=== PATIENT | male | born 1945 ===

== ENCOUNTER 2017-04-02 14:37 | Inpatient (IN) | payer MEDICARE, BC ==
[2017-04-02 14:37] VITALS: BMI 22.7
[2017-04-02 15:53] LABS: BILIRUBIN,TOTAL 1.7 mg/dl (0.2-1.3); CALCIUM 9.7 mg/dL (8.4-10.2); POTASSIUM 3.7 MMOL/L (3.6-5.0); TOTAL PROTEIN 7.3 G/DL (6.3-8.2)
[2017-04-02 16:01] LABS: PARTIAL THROMBOPLASTIN TIME 37.6 Seconds (25.6-37.1)
--- NOTE | 2017-04-02 16:01 | CT ---
PROCEDURE: CT HEAD WITHOUT CONTRAST. HISTORY: generalized weakness COMPARISON: Head CT without contrast 12/21/2011. TECHNIQUE: Axial computed tomography images were obtained through the head/brain without intravenous contrast. Radiation dose: Total exam DLP = 1469.10 mGy-cm. This CT exam was performed using one or more of the following dose reduction techniques: Automated exposure control, adjustment of the mA and/or kV according to patient size, and/or use of iterative reconstruction technique. FINDINGS: HEMORRHAGE: No intracranial hemorrhage. Prior intraparenchymal hemorrhage has resolved at the right basal ganglia/ thalamus and medial right temporal lobe. BRAIN: Chronic infarct is appreciated at the right thalamus, medial temporal lobe and basal ganglia. No definite acute cortical lucency is appreciate suggests an acute separate brain infarction at this time. Diffuse cerebral atrophy chronic microangiopathy is increased in the interval however there is no positive mass effect appreciated this time. Ex vacuo expansion of a right lateral ventricle is appreciated related to prior chronic infarcts. No suspicious extra-axial fluid collection identified. VENTRICLES: Unremarkable. No hydrocephalus. CALVARIUM: Unremarkable. PARANASAL SINUSES: Unremarkable as visualized. No significant inflammatory changes. MASTOID AIR CELLS: Unremarkable as visualized. No inflammatory changes. OTHER FINDINGS: Extensive vascular calcifications are appreciate in the extracranial soft tissues, particularly inferior to the skullbase. IMPRESSION: No definite acute intracranial findings. Chronic infarcted tissue is seen at the right thalamus, basal ganglia and medial right temporal lobe with ex vacuo expansion of the right lateral ventricle noted. Increased age related neuro degenerative changes are identified. Follow-up CT or MRI are available as clinically warranted.
--- NOTE | 2017-04-02 16:05 | RAD ---
HISTORY: SOB COMPARISON: Portable chest 04/01/2016. FINDINGS: LUNGS: Infiltrate or atelectasis is seen at the mid to inferior left lung zone and possibly at the medial right base, potentially increased in the interval. PLEURA: Left pleural effusion is again evident, likely unchanged in the interval. No right pleural effusion. No pneumothorax bilaterally. CARDIOVASCULAR: Cardiac silhouette is obscured. No definitive pulmonary vascular derangement identified. OSSEOUS STRUCTURES: No significant abnormalities. VISUALIZED UPPER ABDOMEN: Normal. OTHER FINDINGS: None. IMPRESSION: Interval increased left sided infiltrate or atelectasis at the mid to inferior and inferior left lung zone with stable moderate left pleural effusion.
[2017-04-02 16:22] LABS: BASO # 0.1 K/uL (0.0-0.2); BASO % 2.7 % (0.0-2.0); EOS # 0.1 K/uL (0.0-0.7); EOS % 1.5 % (0.0-4.0); HEMATOCRIT 38.1 % (35.0-51.0); LYMPH % 23.1 % (20.0-40.0); MEAN CELL VOLUME 96.9 fl (80.0-94.0); MEAN CORPUSCULAR HEMOGLOBIN 30.9 pg (27.0-31.0); MEAN CORPUSCULAR HGB CONC 31.9 g/dL (33.0-37.0); MEAN PLATELET VOLUME 9.1 fl (7.2-11.7); MONO # 0.6 K/uL (0.0-0.8); MONO % 13.9 % (0.0-10.0); NEUT # 2.5 K/uL (1.8-7.0); NEUT % 58.8 % (50.0-75.0); NRBC % 0.1 % (0.0-0.0); RED CELL DISTRIBUTION WIDTH 16.8 % (11.5-14.5); WHITE BLOOD COUNT 4.3 K/uL (4.8-10.8)
[2017-04-02 16:53] LABS: TROPONIN I 0.086 ng/mL (0.00-0.120)
[2017-04-02] MEDS ORDERED: Azithromycin 500 MG in Sodium Chloride 0.9% 250 ML IVPB ONE (18:00)
[2017-04-02] MEDS ORDERED: Albuterol-Ipratrop 3 mg / 0.5 (3 ml) UD INH PRN (18:18)
[2017-04-02] MEDS ORDERED: Albuterol 0.083% Inhal Sol (2.5 mg/3 mL) UD INH STA (18:57)
--- NOTE | 2017-04-02 18:59 | ED PDOC ---
HPI: SOB/CHF/COPD Time Seen by Provider: 04/02/17 14:57 Chief Complaint (Nursing): Weakness/Neurological Deficit Chief Complaint (Provider): SOB, generalized weakness History Per: Patient History/Exam Limitations: no limitations Onset/Duration Of Symptoms: Days Current Symptoms Are (Timing): Still Present Initiating Event: Upper Respiratory Illness (PT reports increased cough ) Exacerbating Factor(s): Laying Flat, Coughing Current Respiratory Medications: See Home Med List Similar Symptoms Previously: Pt reports generalized weakness and SOB worse today , cough no fever Past Medical History Reviewed: Historical Data, Nursing Documentation, Vital Signs Vital Signs: Last Vital Signs Temp 97 F L 04/02/17 14:45 Pulse 82 04/02/17 14:45 Resp 18 04/02/17 14:45 BP 161/83 H 04/02/17 14:45 Pulse Ox 99 04/02/17 14:45 - Medical History PMH: Back Problems, CAD, CHF, CVA, Diabetes, HTN, End Stage Renal Disease, Chronic Kidney Disease (hemodialysis m-w-f- left av shunt) - Surgical History Surgical History: No Surg Hx - Family History Family History: States: Unknown Family Hx - Living Arrangements Living Arrangements: With Family - Social History Current smoker - smoking cessation education provided: No Alcohol: None Drugs: Denies - Immunization History Hx Tetanus Toxoid Vaccination: No Hx Influenza Vaccination: Yes Hx Pneumococcal Vaccination: No - Home Medications Home Medications: Ambulatory Orders Medication Instructions Recorded Carvedilol [Coreg] 6.25 mg PO Q12H 04/02/17 Enalapril Maleate [Vasotec] 20 mg PO Q12H 04/02/17 amLODIPine [Norvasc] 5 mg PO DAILY 04/02/17 hydrALAZINE [Apresoline] 75 mg PO DAILY 04/02/17 - Allergies Allergies/Adverse Reactions: Allergies Allergy/AdvReac Type Severity Reaction Status Date / Time No Known Allergies Allergy Unverified 03/01/17 21:12 Review of Systems ROS Statement: Except As Marked, All Systems Reviewed And Found Negative Constitutional: Positive for: Weakness. Negative for: Fever, Chills Cardiovascular: Negative for: Chest Pain Respiratory: Positive for: Cough, Shortness of Breath Genitourinary Male: Negative for: Dysuria, Frequency Physical Exam - Reviewed Nursing Documentation Reviewed: Yes Vital Signs Reviewed: Yes - Physical Exam Appears: Positive for: Well, Non-toxic, No Acute Distress Head Exam: Positive for: ATRAUMATIC, NORMAL INSPECTION, NORMOCEPHALIC Skin: Positive for: Normal Color, Warm, DRY Eye Exam: Positive for: Normal appearance ENT: Positive for: Normal ENT Inspection Neck: Positive for: Normal, Painless ROM Cardiovascular/Chest: Positive for: Regular Rate, Rhythm Respiratory: Positive for: Rales (Left lower ). Negative for: Normal Breath Sounds Gastrointestinal/Abdominal: Positive for: Normal Exam, Bowel Sounds, Soft Back: Positive for: Normal Inspection Extremity: Positive for: Normal ROM Neurologic/Psych: Positive for: Alert, Oriented - Laboratory Results Result Diagrams: 04/02/17 15:35 04/02/17 15:35 - ECG O2 Sat by Pulse Oximetry: 99 Medical Decision Making Medical Decision Making: Discussed admission for pneumonia with Zack Esquivel NP Disposition - Clinical Impression Clinical Impression: Pneumonia - Patient ED Disposition Is Patient to be Admitted: Yes - Disposition Disposition Time: 18:04 - Pt Status Changed To: Hospital Disposition Of: Inpatient - Admit Certification Admit to Inpatient:: After my assessment, the patient will require hospitalization for at least two midnights. This is because of the severity of symptoms shown, intensity of services needed, and/or the medical risk in this patient being treated as an outpatient. - POA Present On Arrival: None
[2017-04-02] MEDS ORDERED: Azithromycin 500 MG IV IVPB ONE (20:06)
[2017-04-02] MEDS: Piperacillin/Tazobact 3.375 GM in Sodium Chloride 0.9% 100 ML IVPB SCH (21:51)
[2017-04-02] MEDS ORDERED: Influenza Vaccine 18yr & older 0.5 ML/45 MCG SYR IM ONE (22:00)
[2017-04-03] MEDS: Piperacillin/Tazobact 3.375 GM in Sodium Chloride 0.9% 100 ML IVPB SCH ×2 (04:07→09:43)
--- NOTE | 2017-04-03 08:45 | CP.PCM.HP ---
History of Present Illness - History of Present Illness History of Present Illness: pt admitted for pna and fluid overload. no f/c, n/v/d. minimal cough at this time. states cough x 3 months. had fluidremoved from lung in past. probnp elevated. ?? missed idalysis session. bw and imaging noted. pt refused am labs- will do w/ dialysis. med/surg hx noted. nephro on consult for [facility] dialysis schedule Present on Admission - Present on Admission Any Indicators Present on Admission: Yes History of Uncontrolled Diabetes: Yes Review of Systems - Respiratory Respiratory: As Per HPI, Cough, Dyspnea on Exertion, Chest Congestion Past Patient History - Infectious Disease Hx of Infectious Diseases: None - Past Medical History & Family History Past Medical History?: Yes - Past Social History Smoking Status: Former Smoker - CARDIAC Hx Congestive Heart Failure: Yes Hx Hypertension: Yes - PULMONARY Hx Respiratory Disorders: Yes Hx Pneumonia: Yes - NEUROLOGICAL Hx Neurological Disorder: Yes HX Cerebrovascular Accident: Yes (left sided hemiparesis 2 yrs ago) - HEENT Hx HEENT Problems: Yes - RENAL Hx Chronic Kidney Disease: Yes (hemodialysis m-w-f- left av shunt) Type of Dialysis Access: left arm AV shunt Date of Last Dialysis Treatment: 04/01/17 - ENDOCRINE/METABOLIC Hx Diabetes Mellitus Type 1: Yes Hx Diabetes Mellitus Type 2: Yes - HEMATOLOGICAL/ONCOLOGICAL Hx Blood Disorders: Yes Hx AIDS: No Hx Blood Transfusions: Yes Hx Blood Transfusion Reaction: No Hx Human Immunodeficiency Virus (HIV): No - INTEGUMENTARY Hx Dermatological Problems: No - MUSCULOSKELETAL/RHEUMATOLOGICAL Hx Musculoskeletal Disorders: No Hx Falls: Yes - GASTROINTESTINAL Hx Gastrointestinal Disorders: No - GENITOURINARY/GYNECOLOGICAL Hx Genitourinary Disorders: No Other/Comment: ANURIC - PSYCHIATRIC Hx Psychophysiologic Disorder: No Hx Substance Use: No - SURGICAL HISTORY Hx Surgeries: Yes Hx Amputation: Yes (right big toe) Other/Comment: Left AV shunt - ANESTHESIA Hx Anesthesia: Yes Hx Anesthesia Reactions: No Hx Malignant Hyperthermia: No Meds Allergies/Adverse Reactions: Allergies Allergy/AdvReac Type Severity Reaction Status Date / Time No Known Allergies Allergy Unverified 03/01/17 21:12 Physical Exam - Constitutional Appears: Well, Non-toxic, No Acute Distress - Head Exam Head Exam: ATRAUMATIC, NORMAL INSPECTION, NORMOCEPHALIC - Eye Exam Eye Exam: EOMI, Normal appearance, PERRL Pupil Exam: NORMAL ACCOMODATION, PERRL - ENT Exam ENT Exam: Mucous Membranes Moist, Normal Exam - Neck Exam Neck exam: Positive for: Normal Inspection - Respiratory Exam Respiratory Exam: Decreased Breath Sounds, Clear to Auscultation Bilateral, NORMAL BREATHING PATTERN Additional comments: poor insp effort, diminished bases - Cardiovascular Exam Cardiovascular Exam: REGULAR RHYTHM, RRR, +S1, +S2 - GI/Abdominal Exam GI & Abdominal Exam: Normal Bowel Sounds, Soft. absent: Tenderness - Extremities Exam Extremities exam: Positive for: full ROM, normal capillary refill, normal inspection, pedal pulses present - Back Exam Back exam: NORMAL INSPECTION - Neurological Exam Neurological exam: Alert, CN II-XII Intact, Normal Gait, Oriented x3, Reflexes Normal - Psychiatric Exam Psychiatric exam: Normal Affect, Normal Mood - Skin Skin Exam: Dry, Intact, Normal Color, Warm Results - Vital Signs Recent Vital Signs: Last Vital Signs Temp 97.2 F L 04/03/17 08:00 Pulse 69 04/03/17 08:00 Resp 18 04/03/17 08:00 BP 157/94 H 04/03/17 08:00 Pulse Ox 95 04/03/17 08:00 - Labs Result Diagrams: 04/02/17 15:35 04/02/17 15:35 Labs: Laboratory Results - last 24 hr 04/02/17 04/02/17 04/02/17 15:35 15:35 15:35 WBC 4.3 L RBC 3.94 L Hgb 12.2 D Hct 38.1 MCV 96.9 H MCH 30.9 MCHC 31.9 L RDW 16.8 H Plt Count 111 L D MPV 9.1 Neut % (Auto) 58.8 Lymph % (Auto) 23.1 [place] % (Auto) 13.9 H Eos % (Auto) 1.5 Baso % (Auto) 2.7 H Neut # 2.5 Lymph # 1.0 [place] # 0.6 Eos # 0.1 Baso # 0.1 PT INR APTT Sodium 136 Potassium 3.7 Chloride 98 Carbon Dioxide 26 Anion Gap 15 BUN 23 H Creatinine 2.7 H Est GFR ( Amer) 28 Est GFR (Non-Af Amer) 23 POC Glucose (mg/dL) Random Glucose 106 Lactic Acid 1.2 Calcium 9.7 Total Bilirubin 1.7 H AST 37 ALT 28 Alkaline Phosphatase 336 H Troponin I 0.0860 NT-Pro-B Natriuret Pep 418742 H Total Protein 7.3 Albumin 3.6 Globulin 3.7 Albumin/Globulin Ratio 1.0 04/02/17 04/02/17 04/03/17 15:35 21:49 05:26 WBC RBC Hgb Hct MCV MCH MCHC RDW Plt Count MPV Neut % (Auto) Lymph % (Auto) [place] % (Auto) Eos % (Auto) Baso % (Auto) Neut # Lymph # [place] # Eos # Baso # PT 13.4 H INR 1.2 APTT 37.6 H Sodium Potassium Chloride Carbon Dioxide Anion Gap BUN Creatinine Est GFR ( Amer) Est GFR (Non-Af Amer) POC Glucose (mg/dL) 290 H 65 Random Glucose Lactic Acid Calcium Total Bilirubin AST ALT Alkaline Phosphatase Troponin I NT-Pro-B Natriuret Pep Total Protein Albumin Globulin Albumin/Globulin Ratio 04/03/17 06:16 WBC RBC Hgb Hct MCV MCH MCHC RDW Plt Count MPV Neut % (Auto) Lymph % (Auto) [place] % (Auto) Eos % (Auto) Baso % (Auto) Neut # Lymph # [place] # Eos # Baso # PT INR APTT Sodium Potassium Chloride Carbon Dioxide Anion Gap BUN Creatinine Est GFR ( Amer) Est GFR (Non-Af Amer) POC Glucose (mg/dL) 144 H Random Glucose Lactic Acid Calcium Total Bilirubin AST ALT Alkaline Phosphatase Troponin I NT-Pro-B Natriuret Pep Total Protein Albumin Globulin Albumin/Globulin Ratio Assessment & Plan (1) DVT prophylaxis Assessment and Plan: scd and ae hose, lovenox Status: Acute (2) Pneumonia Assessment and Plan: zosyn, zithromax, mucinex, duoneb monitor bw Status: Acute (3) CHF (congestive heart failure) Assessment and Plan: cardio, dialysis Status: Acute (4) IDDM (insulin dependent diabetes mellitus) Assessment and Plan: riss home meds, diet Status: Chronic Priority: Medium - Assessment and Plan (Free Text) Assessment: [id number], dialysis Decision To Admit - Pt Status Changed To: Hospital Disposition Of: Inpatient - Admit Certification Admit to Inpatient:: After my assessment, the patient will require hospitalization for at least two midnights. This is because of the severity of symptoms shown, intensity of services needed, and/or the medical risk in this patient being treated as an outpatient. - . Bed Request Type: Telemetry Admitting Physician: Jefe Little
[2017-04-03] MEDS: guaiFENesin-DM 600-30 mg ER Tab PO SCH ×2 (09:43→17:43)
[2017-04-03] MEDS ORDERED: Enoxaparin 30 mg Syringe SC SCH (10:00)
--- NOTE | 2017-04-03 11:17 | CP.PCM.CON ---
History of Present Illness - History of Present Illness History of Present Illness: Patient is a 71 years of age Admitted because of coughing weakness and diagnosis pneumonia infiltration of the lung and pleural effusion Patient is known with history of diabetes mellitus hypertension hyperlipidemia and previous pneumonia and admission for congestive heart failure and pneumonia as well Patient with history of end-stage renal disease on maintenance hemodialysis Thursday Is being dialyze at [facility] Review of Systems - Review of Systems Systems not reviewed;Unavailable: Altered Mental Status - Constitutional Constitutional: Anorexia, Fatigue, Lethargy, Weakness - EENT Eyes: As Per HPI Nose/Mouth/Throat: As Per HPI - Cardiovascular Cardiovascular: Dyspnea. absent: Chest Pain, Edema, Leg Edema - Respiratory Respiratory: Cough, Dyspnea - Gastrointestinal Gastrointestinal: absent: Abdominal Pain, Coffee Ground Emesis, Diarrhea, Vomiting - Genitourinary Genitourinary: Nocturia - Musculoskeletal Musculoskeletal: Muscle Weakness - Integumentary Integumentary: As Per HPI - Neurological Neurological: Abnormal Gait - Psychiatric Psychiatric: Change in Appetite, Confusion - Endocrine Endocrine: As Per HPI, Fatigue - Hematologic/Lymphatic Hematologic: absent: Easy Bleeding, Easy Bruising Past Patient History - Infectious Disease Hx of Infectious Diseases: None - Past Medical History & Family History Past Medical History?: Yes - Past Social History Smoking Status: Former Smoker - CARDIAC Hx Congestive Heart Failure: Yes Hx Hypertension: Yes - PULMONARY Hx Respiratory Disorders: Yes Hx Pneumonia: Yes - NEUROLOGICAL Hx Neurological Disorder: Yes HX Cerebrovascular Accident: Yes (left sided hemiparesis 2 yrs ago) - HEENT Hx HEENT Problems: Yes - RENAL Hx Chronic Kidney Disease: Yes (hemodialysis m-w-f- left av shunt) Type of Dialysis Access: left arm AV shunt Date of Last Dialysis Treatment: 04/01/17 - ENDOCRINE/METABOLIC Hx Diabetes Mellitus Type 1: Yes Hx Diabetes Mellitus Type 2: Yes - HEMATOLOGICAL/ONCOLOGICAL Hx Blood Disorders: Yes Hx AIDS: No Hx Blood Transfusions: Yes Hx Blood Transfusion Reaction: No Hx Human Immunodeficiency Virus (HIV): No - INTEGUMENTARY Hx Dermatological Problems: No - MUSCULOSKELETAL/RHEUMATOLOGICAL Hx Musculoskeletal Disorders: No Hx Falls: Yes - GASTROINTESTINAL Hx Gastrointestinal Disorders: No - GENITOURINARY/GYNECOLOGICAL Hx Genitourinary Disorders: No Other/Comment: ANURIC - PSYCHIATRIC Hx Psychophysiologic Disorder: No Hx Substance Use: No - SURGICAL HISTORY Hx Surgeries: Yes Hx Amputation: Yes (right big toe) Other/Comment: Left AV shunt - ANESTHESIA Hx Anesthesia: Yes Hx Anesthesia Reactions: No Hx Malignant Hyperthermia: No Meds Allergies/Adverse Reactions: Allergies Allergy/AdvReac Type Severity Reaction Status Date / Time No Known Allergies Allergy Unverified 03/01/17 21:12 - Medications Medications: Current Medications Albuterol/Ipratropium (Duoneb 3 Mg/0.5 Mg (3 Ml) Ud) 3 ml INH RQ4 PRN PRN Reason: Shortness of Breath Amlodipine Besylate (Norvasc) 5 mg PO DAILY [facility] Last Admin: 04/03/17 09:43 Dose: 5 mg Carvedilol (Coreg) 6.25 mg PO Q12H [facility] Last Admin: 04/03/17 05:57 Dose: 6.25 mg Enalapril Maleate (Vasotec) 20 mg PO Q12H [facility] Last Admin: 04/03/17 05:58 Dose: 20 mg Enoxaparin Sodium (Lovenox) 30 mg SC DAILY [facility] PRN Reason: Protocol Guaifenesin/Dextromethorphan (Mucinex-Dm 600-30 Mg) 1 tab PO BID [facility] Last Admin: 04/03/17 09:43 Dose: 1 tab Hydralazine HCl (Apresoline) 75 mg PO DAILY [facility] Last Admin: 04/03/17 09:42 Dose: 75 mg Azithromycin 500 mg/ Sodium (Chloride) 250 mls @ 250 mls/hr IVPB DAILY [facility] PRN Reason: Protocol Piperacillin Sod/Tazobactam (Sod 2.25 gm/ Sodium Chloride) 100 mls @ 100 mls/ hr IVPB Q8 [facility] PRN Reason: Protocol Physical Exam - Constitutional Appears: No Acute Distress - Eye Exam Eye Exam: Conjunctival injection - ENT Exam ENT Exam: Mucous Membranes Moist - Respiratory Exam Respiratory Exam: Decreased Breath Sounds, Rhonchi, NORMAL BREATHING PATTERN. absent: Chest Wall Tenderness - Cardiovascular Exam Cardiovascular Exam: absent: JVD, Rubs - GI/Abdominal Exam GI & Abdominal Exam: Soft. absent: Normal Bowel Sounds - Extremities Exam Extremities exam: Negative for: calf tenderness - Back Exam Back exam: absent: CVA tenderness (L), CVA tenderness (R) - Neurological Exam Neurological exam: Altered - Psychiatric Exam Psychiatric exam: Flat Affect - Skin Skin Exam: Dry Results - Vital Signs Recent Vital Signs: Last Vital Signs Temp 97.2 F L 10/13/17 08:00 Pulse 69 04/03/17 08:00 Resp 18 04/03/17 08:00 BP 157/97 H 04/03/17 09:42 Pulse Ox 95 04/03/17 08:00 - Labs Result Diagrams: 04/02/17 15:35 04/02/17 15:35 Labs: Laboratory Results - last 24 hr 04/02/17 04/02/17 04/02/17 15:35 15:35 15:35 WBC 4.3 L RBC 3.94 L Hgb 12.2 D Hct 38.1 MCV 96.9 H MCH 30.9 MCHC 31.9 L RDW 16.8 H Plt Count 111 L D MPV 9.1 Neut % (Auto) 58.8 Lymph % (Auto) 23.1 [place] % (Auto) 13.9 H Eos % (Auto) 1.5 Baso % (Auto) 2.7 H Neut # 2.5 Lymph # 1.0 [place] # 0.6 Eos # 0.1 Baso # 0.1 PT INR APTT Sodium 136 Potassium 3.7 Chloride 98 Carbon Dioxide 26 Anion Gap 15 BUN 23 H Creatinine 2.7 H Est GFR ( Amer) 28 Est GFR (Non-Af Amer) 23 POC Glucose (mg/dL) Random Glucose 106 Lactic Acid 1.2 Calcium 9.7 Total Bilirubin 1.7 H AST 37 ALT 28 Alkaline Phosphatase 336 H Troponin I 0.0860 NT-Pro-B Natriuret Pep 346222 H Total Protein 7.3 Albumin 3.6 Globulin 3.7 Albumin/Globulin Ratio 1.0 04/02/17 04/02/17 04/03/17 15:35 21:49 05:26 WBC RBC Hgb Hct MCV MCH MCHC RDW Plt Count MPV Neut % (Auto) Lymph % (Auto) [place] % (Auto) Eos % (Auto) Baso % (Auto) Neut # Lymph # [place] # Eos # Baso # PT 13.4 H INR 1.2 APTT 37.6 H Sodium Potassium Chloride Carbon Dioxide Anion Gap BUN Creatinine Est GFR ( Amer) Est GFR (Non-Af Amer) POC Glucose (mg/dL) 290 H 65 Random Glucose Lactic Acid Calcium Total Bilirubin AST ALT Alkaline Phosphatase Troponin I NT-Pro-B Natriuret Pep Total Protein Albumin Globulin Albumin/Globulin Ratio 04/03/17 06:16 WBC RBC Hgb Hct MCV MCH MCHC RDW Plt Count MPV Neut % (Auto) Lymph % (Auto) [place] % (Auto) Eos % (Auto) Baso % (Auto) Neut # Lymph # [place] # Eos # Baso # PT INR APTT Sodium Potassium Chloride Carbon Dioxide Anion Gap BUN Creatinine Est GFR ( Amer) Est GFR (Non-Af Amer) POC Glucose (mg/dL) 144 H Random Glucose Lactic Acid Calcium Total Bilirubin AST ALT Alkaline Phosphatase Troponin I NT-Pro-B Natriuret Pep Total Protein Albumin Globulin Albumin/Globulin Ratio Assessment & Plan (1) Chronic kidney disease, stage V requiring chronic dialysis Assessment and Plan: Patient with end stage renal disease on maintenance hemodialysis MWF Admitted with pneumonia also chest x-ray noted to have pleural effusion and pneumonia Patient appeared to have muscle wasting Cachexia Volume overloaded was hypo-BMP Lab reviewed Patient has been on hemodialysis for about 10 years AV fistula in the left upper arm with 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
[2017-04-03] MEDS: Azithromycin 500 MG in Sodium Chloride 0.9% 250 ML IVPB SCH (13:35)
--- NOTE | 2017-04-03 16:08 | CON ---
CARDIOLOGY CONSULTATION DATE: REASON FOR CONSULTATION: Shortness of breath as well as congestive heart failure. HISTORY OF PRESENT ILLNESS: The patient is a 71-year-old male, who has a history of end-stage renal disease, on hemodialysis for the past 10 years; history of stroke with hemiplegia 5 years ago, is being bedridden. The patient was referred for admission because of shortness of breath and diagnosis of pneumonia on a recent outpatient chest x-ray. The patient has a history of congestive heart failure. His echocardiographic study performed in March last revealed ejection fraction estimated at 25% and, at that time, the patient had large distal pleural effusion. According to the , the patient required thoracocentesis in the past for his pericardial effusion. No reported fever or chills by the way. No reported retrosternal chest pain. PAST MEDICAL HISTORY: Hypertension, end-stage renal disease, CVA, congestive heart failure, left pleural effusion. SOCIAL HISTORY: The patient is a nonsmoker. He is bedridden, lives with his . 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 The patient has been admitted a few times this year. MEDICATIONS: Hydralazine 75 mg daily, Zithromax 500 mg intravenously daily, Coreg 6.25 mg p.o. twice a day, albuterol inhaler q4. hours p.r.n., Lovenox 30 mg once a day, Norvasc 5 mg once a day, Zosyn 2.25 g intravenous q.8 hours, Vasotec 20 mg twice a day. PHYSICAL EXAMINATION: GENERAL: The patient is an elderly male who does not appear to be in acute distress. VITAL SIGNS: Blood pressure 161/83, heart rate 82, temperature 97, respirations 18. HEENT: No pallor or icterus. NECK: No JVD. CHEST: Absent breath sounds over both bases. HEART: S1 and S2 regular. ABDOMEN: Soft. EXTREMITIES: Trace leg edema. LABORATORY DATA: Hemoglobin and hematocrit 12.2 and 38.1, white count 4.3, platelet count 111,000. SMA-7 is within normal limits except for BUN and creatinine of 23 and 2.7. Total bilirubin is slightly elevated at 1.7, proBNP is 418,000. Alkaline phosphatase is elevated at 336. PTT 37.6, INR is 1.2. EKG revealed sinus rhythm with left axis deviation, right bundle branch block. Chest x-ray revealed cardiomegaly with a left lower lobe effusion. ASSESSMENT: 1. Acute systolic heart failure. 2. End-stage renal disease, on hemodialysis. 3. History of cerebrovascular accident with residual hemiplegia. RECOMMENDATIONS: Continue hydralazine 75 mg once daily, IV Zithromax at 500 mg daily, and IV Zosyn at 2.25 g intravenous q.8 hours. Continue amlodipine at 5 mg once daily, Vasotec 20 mg twice a day, and Coreg 6.25 mg twice a day. Obtain a repeat echocardiographic study and consider a chest CT scan without contrast. Start subcutaneous heparin at 5000 units q.12 hours. Dc La MD
[2017-04-03 21:22] LABS: ALB/GLOB RATIO 0.9 (1.0-2.1); BILIRUBIN,TOTAL 1.4 mg/dl (0.2-1.3); CALCIUM 8.8 mg/dL (8.4-10.2); POTASSIUM 4.1 MMOL/L (3.6-5.0); TOTAL PROTEIN 5.8 G/DL (6.3-8.2)
[2017-04-03 23:04] LABS: HEMATOCRIT 33.5 % (35.0-51.0); MEAN CELL VOLUME 94.8 fl (80.0-94.0); MEAN CORPUSCULAR HEMOGLOBIN 30.6 pg (27.0-31.0); MEAN CORPUSCULAR HGB CONC 32.3 g/dL (33.0-37.0); RED CELL DISTRIBUTION WIDTH 17.2 % (11.5-14.5); WHITE BLOOD COUNT 3.6 K/uL (4.8-10.8)
--- NOTE | 2017-04-04 06:41 | CARD ---
APPROVED REPORT EKG Measurement Heart [id number] <Conclusion> Normal sinus rhythm with sinus arrhythmia Left axis deviation Right bundle branch block Abnormal ECG
--- NOTE | 2017-04-04 07:34 | CP.PCM.PN ---
Subjective - Date & Time of Evaluation Date of Evaluation: 04/04/17 Time of Evaluation: 07:34 - Subjective Subjective: no complaints. no cp, cough, congestion. nof /c, n/v/d. pt refused am labs. labs during dialysis noted. all consults appriciated. repss even and unlabored Objective - Vital Signs/Intake and Output Vital Signs (last 24 hours): Temp Pulse Resp BP Pulse Ox 97.4 F L 69 20 143/79 97 04/04/17 05:00 04/04/17 05:38 04/04/17 05:00 04/04/17 05:38 04/04/17 05:00 - Medications Medications: Current Medications Acetaminophen (Tylenol 325mg Tab) 650 mg PO Q4 PRN PRN Reason: Pain, moderate (4-7) Last Admin: 04/03/17 15:27 Dose: 650 mg Albuterol/Ipratropium (Duoneb 3 Mg/0.5 Mg (3 Ml) Ud) 3 ml INH RQ4 PRN PRN Reason: Shortness of Breath Amlodipine Besylate (Norvasc) 5 mg PO DAILY [facility] Last Admin: 04/03/17 09:43 Dose: 5 mg Carvedilol (Coreg) 6.25 mg PO Q12H [facility] Last Admin: 04/04/17 05:38 Dose: 6.25 mg Enalapril Maleate (Vasotec) 20 mg PO Q12H [facility] Last Admin: 04/04/17 05:38 Dose: 20 mg Guaifenesin/Dextromethorphan (Mucinex-Dm 600-30 Mg) 1 tab PO BID [facility] Last Admin: 04/03/17 17:43 Dose: 1 tab Heparin Sodium (Porcine) (Heparin) 5,000 units SC Q12 MICHAEL PRN Reason: Protocol Last Admin: 04/04/17 00:39 Dose: 5,000 units Hydralazine HCl (Apresoline) 75 mg PO DAILY [facility] Last Admin: 04/03/17 09:42 Dose: 75 mg Azithromycin 500 mg/ Sodium (Chloride) 250 mls @ 250 mls/hr IVPB DAILY MICHAEL PRN Reason: Protocol Last Admin: 04/03/17 13:35 Dose: 250 mls/hr Piperacillin Sod/Tazobactam (Sod 2.25 gm/ Sodium Chloride) 100 mls @ 100 mls/ hr IVPB Q8 MICHAEL PRN Reason: Protocol Last Admin: 04/04/17 00:39 Dose: 100 mls/hr - Labs Labs: 04/03/17 20:30 04/03/17 21:03 PT 13.4 Seconds (9.8-13.1) H 04/02/17 15:35 INR 1.2 (0.9-1.2) 04/02/17 15:35 APTT 37.6 Seconds (25.6-37.1) H 04/02/17 15:35 - Constitutional Appears: Well, Non-toxic, No Acute Distress - Head Exam Head Exam: ATRAUMATIC, NORMAL INSPECTION, NORMOCEPHALIC - Eye Exam Eye Exam: EOMI, Normal appearance, PERRL Pupil Exam: NORMAL ACCOMODATION, PERRL - ENT Exam ENT Exam: Mucous Membranes Moist, Normal Exam - Neck Exam Neck Exam: Full ROM, Normal Inspection. absent: Lymphadenopathy - Respiratory Exam Respiratory Exam: Clear to Ausculation Bilateral, NORMAL BREATHING PATTERN - Cardiovascular Exam Cardiovascular Exam: REGULAR RHYTHM, RRR, +S1, +S2. absent: Murmur - GI/Abdominal Exam GI & Abdominal Exam: Soft, Normal Bowel Sounds. absent: Tenderness - Extremities Exam Extremities Exam: Full ROM, Normal Capillary Refill, Normal Inspection. absent : Joint Swelling, Pedal Edema - Back Exam Back Exam: NORMAL INSPECTION - Neurological Exam Neurological Exam: Alert, Awake, CN II-XII Intact, Normal Gait, Oriented x3 - Psychiatric Exam Psychiatric exam: Normal Affect, Normal Mood - Skin Skin Exam: Dry, Intact, Normal Color, Warm Assessment and Plan (1) DVT prophylaxis Status: Acute (2) Pneumonia Status: Acute (3) CHF (congestive heart failure) Status: Acute (4) IDDM (insulin dependent diabetes mellitus) Status: Chronic - Assessment and Plan (Free Text) Assessment: (1) DVT prophylaxis Assessment and Plan: scd and ae hose, heparin Status: Acute (2) Pneumonia Assessment and Plan: zosyn, zithromax, mucinex, duoneb monitor bw Status: Acute (3) CHF (congestive heart failure) Assessment and Plan: cardio, dialysis echo Status: Acute (4) IDDM (insulin dependent diabetes mellitus) Assessment and Plan: riss home meds, diet Status: Chronic Priority: Medium - Assessment and Plan (Free Text) Assessment: [id number], dialysis
[2017-04-04] MEDS: guaiFENesin-DM 600-30 mg ER Tab PO SCH ×2 (09:37→17:55)
[2017-04-04] MEDS: Azithromycin 500 MG in Sodium Chloride 0.9% 250 ML IVPB SCH (09:40)
--- NOTE | 2017-04-05 02:39 | PN ---
SUBJECTIVE: The patient denies any chest pain or shortness of breath. He does report abdominal discomfort, but no nausea or vomiting and he states that he did not like his food because it was disgusting, according to him. His today. PHYSICAL EXAMINATION: VITAL SIGNS: Blood pressure 123/71, heart rate 66, temperature 97.5, respirations 20. HEENT: Pale conjunctivae. CHEST: Absent breath sounds over the left base. HEART: S1, S2 regular. EXTREMITIES: Trace leg edema. ASSESSMENT: 1. Cardiomyopathy. 2. End-stage renal disease, on hemodialysis. 3. Pneumonia and left pleural effusion. 4. History of cerebrovascular accident. RECOMMENDATIONS: Continue Zithromax 500 mg intravenous daily, Coreg 6.25 mg twice a day, heparin 5000 units subcutaneous twice a day, Norvasc 5 mg once a day, Zosyn 2.25 g intravenous q.8 hours, Lasix 20 mg orally twice a day. Obtain a followup portable chest x-ray. Dc La MD
--- NOTE | 2017-04-05 02:53 | CP.PCM.PN ---
Subjective - Date & Time of Evaluation Date of Evaluation: 04/04/17 Time of Evaluation: 13:00 - Subjective Subjective: renal follow up note no events overnight PE: lying in bed asleep [place] NAD s1s2 present bilateral air entry equal abd soft no edema contractures from hemiplegia uncooperative Objective - Vital Signs/Intake and Output Vital Signs (last 24 hours): Temp Pulse Resp BP Pulse Ox 97 F L 69 20 166/92 H 98 04/04/17 19:50 04/04/17 19:50 04/04/17 19:50 04/04/17 19:50 04/04/17 19:50 - Medications Medications: Current Medications Acetaminophen (Tylenol 325mg Tab) 650 mg PO Q4 PRN PRN Reason: Pain, moderate (4-7) Last Admin: 04/03/17 15:27 Dose: 650 mg Albuterol/Ipratropium (Duoneb 3 Mg/0.5 Mg (3 Ml) Ud) 3 ml INH RQ4 PRN PRN Reason: Shortness of Breath Amlodipine Besylate (Norvasc) 5 mg PO DAILY [facility] Last Admin: 04/04/17 09:57 Dose: Not Given Carvedilol (Coreg) 6.25 mg PO Q12H [facility] Last Admin: 04/04/17 17:56 Dose: 6.25 mg Enalapril Maleate (Vasotec) 20 mg PO Q12H [facility]PL[facility] Last Admin: 04/04/17 22:36 Dose: 20 mg Guaifenesin/Dextromethorphan (Mucinex-Dm 600-30 Mg) 1 tab PO BID [facility] Last Admin: 04/04/17 17:55 Dose: 1 tab Heparin Sodium (Porcine) (Heparin) 5,000 units SC Q12 MICHAEL PRN Reason: Protocol Last Admin: 04/04/17 22:39 Dose: Not Given Hydralazine HCl (Apresoline) 75 mg PO DAILY [facility] Last Admin: 04/04/17 09:37 Dose: Not Given Azithromycin 500 mg/ Sodium (Chloride) 250 mls @ 250 mls/hr IVPB DAILY MICHAEL PRN Reason: Protocol Last Admin: 04/04/17 09:40 Dose: 250 mls/hr Piperacillin Sod/Tazobactam (Sod 2.25 gm/ Sodium Chloride) 100 mls @ 100 mls/ hr IVPB Q8 MICHAEL PRN Reason: Protocol Last Admin: 04/05/17 00:40 Dose: 100 mls/hr - Labs Labs: 04/03/17 20:30 04/03/17 21:03 PT 13.4 Seconds (9.8-13.1) H 04/02/17 15:35 INR 1.2 (0.9-1.2) 04/02/17 15:35 APTT 37.6 Seconds (25.6-37.1) H 04/02/17 15:35 Assessment and Plan - Assessment and Plan (Free Text) Plan: ESRD/CVA/HTN/pnemonia/anemia hd mwf, continue per schedule lytes reviewed volume status stable anemia stable monitor phos levels abx per primary team
--- NOTE | 2017-04-05 09:12 | CP.PCM.PN ---
Subjective - Date & Time of Evaluation Date of Evaluation: 04/05/17 Time of Evaluation: 09:11 - Subjective Subjective: no complaints/distress. no cough/congestion. no f/c, n/v/d. refusing am labs. consult notes appriciated. pending echo reoprte. Objective - Vital Signs/Intake and Output Vital Signs (last 24 hours): Temp Pulse Resp BP Pulse Ox 97.4 F L 70 18 125/97 H 96 04/05/17 08:00 04/05/17 08:00 04/05/17 08:00 04/05/17 08:00 04/05/17 08:00 - Medications Medications: Current Medications Acetaminophen (Tylenol 325mg Tab) 650 mg PO Q4 PRN PRN Reason: Pain, moderate (4-7) Last Admin: 04/03/17 15:27 Dose: 650 mg Albuterol/Ipratropium (Duoneb 3 Mg/0.5 Mg (3 Ml) Ud) 3 ml INH RQ4 PRN PRN Reason: Shortness of Breath Amlodipine Besylate (Norvasc) 5 mg PO DAILY [facility] Last Admin: 04/04/17 09:57 Dose: Not Given Carvedilol (Coreg) 6.25 mg PO Q12H [facility] Last Admin: 04/05/17 06:49 Dose: 6.25 mg Enalapril Maleate (Vasotec) 20 mg PO Q12H [facility] Last Admin: 04/05/17 06:49 Dose: 20 mg Guaifenesin/Dextromethorphan (Mucinex-Dm 600-30 Mg) 1 tab PO BID [facility] Last Admin: 04/04/17 17:55 Dose: 1 tab Heparin Sodium (Porcine) (Heparin) 5,000 units SC Q12 MICHAEL PRN Reason: Protocol Last Admin: 04/04/17 22:39 Dose: Not Given Hydralazine HCl (Apresoline) 75 mg PO DAILY [facility] Last Admin: 04/04/17 09:37 Dose: Not Given Azithromycin 500 mg/ Sodium (Chloride) 250 mls @ 250 mls/hr IVPB DAILY MICHAEL PRN Reason: Protocol Last Admin: 04/04/17 09:40 Dose: 250 mls/hr Piperacillin Sod/Tazobactam (Sod 2.25 gm/ Sodium Chloride) 100 mls @ 100 mls/ hr IVPB Q8 MICHAEL PRN Reason: Protocol Last Admin: 04/05/17 00:40 Dose: 100 mls/hr - Labs Labs: 04/03/17 20:30 04/03/17 21:03 PT 13.4 Seconds (9.8-13.1) H 04/02/17 15:35 INR 1.2 (0.9-1.2) 04/02/17 15:35 APTT 37.6 Seconds (25.6-37.1) H 04/02/17 15:35 - Constitutional Appears: Well, Non-toxic, No Acute Distress, Chronically Ill - Head Exam Head Exam: ATRAUMATIC, NORMAL INSPECTION, NORMOCEPHALIC - Eye Exam Eye Exam: EOMI, Normal appearance, PERRL Pupil Exam: NORMAL ACCOMODATION, PERRL - ENT Exam ENT Exam: Mucous Membranes Moist, Normal Exam - Neck Exam Neck Exam: Full ROM, Normal Inspection. absent: Lymphadenopathy - Respiratory Exam Respiratory Exam: Clear to Ausculation Bilateral, NORMAL BREATHING PATTERN - Cardiovascular Exam Cardiovascular Exam: REGULAR RHYTHM, RRR, +S1, +S2. absent: Murmur - GI/Abdominal Exam GI & Abdominal Exam: Soft, Normal Bowel Sounds. absent: Tenderness - Extremities Exam Extremities Exam: Full ROM, Normal Capillary Refill, Normal Inspection. absent : Joint Swelling, Pedal Edema - Back Exam Back Exam: NORMAL INSPECTION - Neurological Exam Neurological Exam: Abnormal Gait, Alert, Awake, CN II-XII Intact, Oriented x3 - Psychiatric Exam Psychiatric exam: Normal Affect, Normal Mood - Skin Skin Exam: Dry, Intact, Normal Color, Warm Assessment and Plan (1) DVT prophylaxis Status: Acute (2) Pneumonia Status: Acute (3) CHF (congestive heart failure) Status: Acute (4) IDDM (insulin dependent diabetes mellitus) Status: Chronic - Assessment and Plan (Free Text) Assessment: (1) DVT prophylaxis Assessment and Plan: scd and ae hose, heparin Status: Acute (2) Pneumonia Assessment and Plan: zosyn, zithromax, mucinex, duoneb monitor bw repeat xr Status: Acute (3) CHF (congestive heart failure) Assessment and Plan: cardio, dialysis echo[ending report Status: Acute (4) IDDM (insulin dependent diabetes mellitus) Assessment and Plan: riss home meds, diet Status: Chronic Priority: Medium - Assessment and Plan (Free Text) Assessment: [id number], dialysis
--- NOTE | 2017-04-05 09:58 | RAD ---
PROCEDURE: CHEST RADIOGRAPH, 1 VIEW HISTORY: effusion COMPARISON: 04/02/2017 FINDINGS: LUNGS: Persistent areas of alveolar density are identified bilaterally as well as probable subsegmental atelectasis at the left lung base secondary to left pleural effusion. There may be some mild increase in congestion and alveolar density in the right lung. PLEURA: Left pleural effusion. Minor right effusion. CARDIOVASCULAR: Probable mild increase in vascular congestion. OSSEOUS STRUCTURES: No significant abnormalities. VISUALIZED UPPER ABDOMEN: Normal. OTHER FINDINGS: None. IMPRESSION: Probable mild increase in vascular congestion with persistent alveolar edema and left pleural effusion with subsegmental atelectasis at the left lung base.
[2017-04-05] MEDS: Azithromycin 500 MG in Sodium Chloride 0.9% 250 ML IVPB SCH ×2 (10:31→10:34)
[2017-04-05] MEDS: guaiFENesin-DM 600-30 mg ER Tab PO SCH ×2 (10:33→16:32)
--- NOTE | 2017-04-05 17:03 | PN ---
DATE: SUBJECTIVE: The patient denies any chest pain or shortness of breath. PHYSICAL EXAMINATION VITAL SIGNS: Blood pressure 121/72, heart rate 65, temperature 97.4, respirations 20. HEENT: Pale conjunctiva. CHEST: Absent breath sounds over the left base. HEART: S1, S2 regular. ABDOMEN: Soft. EXTREMITIES: Left hemiplegia and right big toe amputation. LABORATORY DATA: Brief review of the echocardiographic study revealed severely depressed ejection fraction. ASSESSMENT: 1. Dilated cardiomyopathy. 2. History of cerebrovascular accident with residual left hemiplegia. 3. End-stage renal disease, on hemodialysis. 4. Peripheral vascular disease, status post right big toe amputation. 5. Left lower lobe pneumonia and possibly pleural effusion. RECOMMENDATIONS: I could not access the chest x-ray image that was done yesterday; however, the official report suggests probably mild increase in vascular congestion with persistent edema and left pleural effusion with subsegmental atelectasis at the left lung base. Continue current hydralazine 75 mg once a day. Continue IV Zithromax and IV Zosyn. Continue enalapril 20 mg twice a day, Norvasc at 5 mg once a day, subcutaneous heparin 5000 units q. 8 hours; Coreg 6.25 mg twice a day. I will administer one dose of Lasix 80 mg IV push now. Dc La MD
--- NOTE | 2017-04-06 08:17 | PQF DM ---
This form is a permanent part of the medical record 04/06/17 Zack Esquivel APN, Documentation of DM I and DM II. Glucose running 63-290. Please clarify which is ruled in or ruled out. Clarification of your documentation is requested to better reflect the severity of illness and intensity of treatment of your patient. Indicators present: [x] Documented diagnosis of Diabetes [] Documented condition [] A1C results [] Diabetic medications: NO [] Elevated blood glucose [x] Nutritional consults [] ADA diet [] Other: [] Location in the medical record that reflects the above clinical findings:[] Treatment Provided: PHYSICIAN'S RESPONSE Based on your medical judgment of the clinical indicators outlined above, are you treating this patient for a known or suspected: [] Diabetes Mellitus, Type I [] Controlled [] Uncontrolled [x] Diabetes Mellitus, Type II [] Controlled [x] Uncontrolled [] Diabetes, Steroid induced [] Controlled [] Uncontrolled [] Diabetic conditions/complications [] Diabetes ruled out [] Other, please indicate [] [] If Unable to Determine, please check the box, sign and date. Present On Admission (POA) Indicator: [x] Present at the time of admission [] Not present at the time of admission [] Clinically Undetermined In responding to this query, please exercise your independent professional judgment. The fact that a question is asked does not imply that any particular answer is desired or expected. Thank you for your clarification on this documentation. If you have any questions please call:Extension [phone] * Thank you, Felecia Huston RN CDMP MTDD
--- NOTE | 2017-04-06 08:31 | PQF PNEUMO ---
This form is a permanent part of the medical record 04/06/17 Zack Esquivel [employer] OFFICE REPRESENTATIVE, Admitted with SOB, cough and weakness. Afebrile. HX of ESRD on HD. CXR: Interval increase L sided infiltrate or atelectasis at the mid to inferior and inferior L lung zone with stable moderate L pleural effusion. WBC 4.3. Treated with Zithromax and Zosyn. Clarification of your documentation is requested to better reflect the severity of illness and intensity of treatment of your patient. Indicators present [x] Documented diagnosis of pneumonia: [x] X-ray findings: Infiltrate or atelectasis [] Positive Sputum cultures [x] Cough [x] Abnormal lungs sounds [] Poor gag reflex [] Speech consults/swallow evaluation [] Vent dependence [] Other: [] Location in the medical record that reflects the above clinical findings: [] Treatment Provided: [x] PHYSICIAN'S RESPONSE Based on your medical judgment of the clinical indicators outlined above, are you treating this patient for a known or suspected: [] Aspiration pneumonia [] Viral pneumonia [] Bacterial pneumonia Please specify organism: [] [x] Bronchopneumonia [] Interstitial Pneumonia [] Other, please indicate [] If Unable to Determine, please check the box, sign and date. Note: CAP, HAP, and HCAP indicate where the pneumonia was acquired, not a specific type. Present On Admission (POA) Indicator: [] Present at the time of admission [] Not present at the time of admission [] Clinically Undetermined In responding to this query, please exercise your independent professional judgment. The fact that a question is asked does not imply that any particular answer is desired or expected. Thank you for your clarification on this documentation. If you have any questions please call:extension [phone] * Thank you, Felecia Huston RN CDMP MTDD
[2017-04-06] MEDS: Azithromycin 500 MG in Sodium Chloride 0.9% 250 ML IVPB SCH (09:24)
[2017-04-06] MEDS: guaiFENesin-DM 600-30 mg ER Tab PO SCH ×2 (09:26→17:15)
--- NOTE | 2017-04-06 09:41 | CARD ---
APPROVED REPORT EXAM: Two-dimensional and M-mode echocardiogram with Doppler and color Doppler. Other Information Quality : GoodTechnically LimitedRhythm : NSR Technically limited study due to patient cannot move left arm. INDICATION Congestive Heart Failure 2D DIMENSIONS Left Atrium (2D)5.11 (1.6-4.0cm)IVSd1.61 (0.7-1.1cm) Aortic Root (2D)3.35 (2.0-3.7cm)LVDd5.18 (3.9-5.9cm) LVOT Diameter1.50 (1.8-2.4cm)PWd1.36 (0.7-1.1cm) IVSs1.76 (0.8-1.2cm)LVDs4.74 (2.5-4.0cm) FS (%) 8.4 %PWs1.54 (0.8-1.2cm) M-Mode DIMENSIONS Left Atrium (MM)5.40 (2.5-4.0cm)IVSd1.31 (0.7-1.1cm) Aortic Root3.29 (2.2-3.7cm)LVDd5.49 (4.0-5.6cm) Aortic Cusp Exc.1.10 (1.5-2.0cm)PWd1.48 (0.7-1.1cm) IVSs1.39 cmFS (%) 16 % LVDs4.60 (2.0-3.8cm)PWs2.15 cm Aortic Valve AoV Peak Fmpscxwd123.2cm/sAoV VTI29.0cmAO Peak GR.7mmHg LVOT Peak Cbdpbxlc89.6cm/sLVOT VTI15.12cmAO Mean GR.4mmHg CHAVEZ (VMAX)0.67kx5RJX (VTI)0.55cm2 Mitral Valve MV E Wulqjkly42.8cm/sMV E Peak Gr.96mmHgMV DECEL [id number] MV A Mlunafnl64.9cm/sMV FDD41zqM/A ratio3.5 MVA (PHT)5.69cm2 TDI E/Lateral E'0.0E/Medial E'0.0 Tricuspid Valve TR Peak Cbpkglso941es/sRAP AOWIXLVY15niDuZF Peak Gr.28mmHg [id number] LEFT VENTRICLE The left ventricle is normal size. There is moderate concentric left ventricular hypertrophy. Left ventricle systolic function is severely impaired. The Ejection Fraction is 10-15% There is global hypokinesis Transmitral Doppler flow pattern is Grade II-pseudonormal filling dynamics. No left ventricle thrombus noted on this study. There is no ventricular septal defect visualized. There is no left ventricular aneurysm. There is no mass noted in the left ventricle. RIGHT VENTRICLE The right ventricle is normal size. There is normal right ventricular wall thickness. The right ventricular systolic function is normal. ATRIA The left atrium is moderately dilated. The right atrium size is normal. The interatrial septum is intact with no evidence for an atrial septal defect. AORTIC VALVE The aortic valve is moderately sclerotic. No aortic regurgitation is present. There is no aortic valvular stenosis. There is no aortic valvular vegetation. MITRAL VALVE The mitral valve is normal in structure and function. There is no evidence of mitral valve prolapse. There is no mitral valve stenosis. Mitral regurgitation is moderate to severe. TRICUSPID VALVE The tricuspid valve is normal in structure and function. There is no tricuspid valve regurgitation noted. There is no tricuspid valve prolapse or vegetation. There is no tricuspid valve stenosis. PULMONIC VALVE The pulmonary valve is normal in structure and function. There is no pulmonic valvular regurgitation. There is no pulmonic valvular stenosis. GREAT VESSELS The aortic root is normal in size. The ascending aorta is normal in size. The IVC is normal in size and collapses >50% with inspiration. PERICARDIAL EFFUSION The pericardium appears normal. There is no pleural effusion. <Conclusion> Severely reduced LV systolic function LVEF 10-15% Global Hypokinesis Moderate to Severe Mitral Regurgitation Left Atrial Enlargement
--- NOTE | 2017-04-06 09:52 | CP.PCM.PN ---
Subjective - Date & Time of Evaluation Date of Evaluation: 04/06/17 Time of Evaluation: 09:49 - Subjective Subjective: Patient and bed Patient appeared to be contracted from previous paralysis and CVA No nausea or vomiting Objective - Vital Signs/Intake and Output Vital Signs (last 24 hours): Temp Pulse Resp BP Pulse Ox 97.8 F 61 18 120/63 96 04/06/17 05:21 04/06/17 07:34 04/06/17 05:21 04/06/17 07:34 04/06/17 05:21 - Medications Medications: Current Medications Acetaminophen (Tylenol 325mg Tab) 650 mg PO Q4 PRN PRN Reason: Pain, moderate (4-7) Last Admin: 04/03/17 15:27 Dose: 650 mg Albuterol/Ipratropium (Duoneb 3 Mg/0.5 Mg (3 Ml) Ud) 3 ml INH RQ4 PRN PRN Reason: Shortness of Breath Amlodipine Besylate (Norvasc) 5 mg PO DAILY [facility] Last Admin: 04/06/17 09:25 Dose: Not Given Carvedilol (Coreg) 6.25 mg PO Q12H [facility] Last Admin: 04/06/17 07:34 Dose: 6.25 mg Enalapril Maleate (Vasotec) 20 mg PO Q12H [facility] Last Admin: 04/06/17 07:34 Dose: 20 mg Guaifenesin/Dextromethorphan (Mucinex-Dm 600-30 Mg) 1 tab PO BID [facility] Last Admin: 04/06/17 09:26 Dose: Not Given Heparin Sodium (Porcine) (Heparin) 5,000 units SC Q12 MICHAEL PRN Reason: Protocol Last Admin: 04/06/17 09:26 Dose: Not Given Hydralazine HCl (Apresoline) 75 mg PO DAILY [facility] Last Admin: 04/06/17 09:26 Dose: Not Given Azithromycin 500 mg/ Sodium (Chloride) 250 mls @ 250 mls/hr IVPB DAILY MICHAEL PRN Reason: Protocol Last Admin: 04/06/17 09:24 Dose: Not Given Piperacillin Sod/Tazobactam (Sod 2.25 gm/ Sodium Chloride) 100 mls @ 100 mls/ hr IVPB Q8 MICHAEL PRN Reason: Protocol Last Admin: 04/06/17 09:24 Dose: Not Given - Labs Labs: 04/03/17 20:30 04/03/17 21:03 PT 13.4 Seconds (9.8-13.1) H 04/02/17 15:35 INR 1.2 (0.9-1.2) 04/02/17 15:35 APTT 37.6 Seconds (25.6-37.1) H 04/02/17 15:35 - Constitutional Appears: No Acute Distress - ENT Exam ENT Exam: Mucous Membranes Moist - Neck Exam Neck Exam: absent: Lymphadenopathy - Respiratory Exam Respiratory Exam: absent: Chest Wall Tenderness - Cardiovascular Exam Cardiovascular Exam: absent: JVD, Rubs - GI/Abdominal Exam GI & Abdominal Exam: Soft, Normal Bowel Sounds - Extremities Exam Extremities Exam: absent: Calf Tenderness - Back Exam Back Exam: absent: CVA tenderness (R) - Neurological Exam Neurological Exam: Alert Assessment and Plan (1) Chronic kidney disease, stage V requiring chronic dialysis Assessment & Plan: End stage renal disease Chest x-ray abnormal as noted was some pleural effusion see the detailed Patient about to have dialysis now Order in place With ultrafiltration about 3000 mL as tolerated I suggested do CT scan of the lung with IV contrast and perhaps get pulmonary consult Sodium bath 138 Potassium bath 2 mEq Status: Acute (2) Pneumonia Status: Acute
--- NOTE | 2017-04-06 10:24 | CP.PCM.PN ---
Subjective - Date & Time of Evaluation Date of Evaluation: 04/06/17 Time of Evaluation: 10:22 - Subjective Subjective: doing well, no complaints. no f/c, n/v/d. no further abd complaints. cxr w/ lef tpleural effusion note.d no dyspnea. refusing labs-will do w/ dialysis Objective - Vital Signs/Intake and Output Vital Signs (last 24 hours): Temp Pulse Resp BP Pulse Ox 97.7 F 66 20 144/88 98 04/06/17 10:14 04/06/17 10:14 04/06/17 10:14 04/06/17 10:14 04/06/17 10:14 - Medications Medications: Current Medications Acetaminophen (Tylenol 325mg Tab) 650 mg PO Q4 PRN PRN Reason: Pain, moderate (4-7) Last Admin: 04/03/17 15:27 Dose: 650 mg Albuterol/Ipratropium (Duoneb 3 Mg/0.5 Mg (3 Ml) Ud) 3 ml INH RQ4 PRN PRN Reason: Shortness of Breath Amlodipine Besylate (Norvasc) 5 mg PO DAILY [facility] Last Admin: 04/06/17 09:25 Dose: Not Given Carvedilol (Coreg) 6.25 mg PO Q12H [facility] Last Admin: 04/06/17 07:34 Dose: 6.25 mg Enalapril Maleate (Vasotec) 20 mg PO Q12H [facility] Last Admin: 04/06/17 07:34 Dose: 20 mg Guaifenesin/Dextromethorphan (Mucinex-Dm 600-30 Mg) 1 tab PO BID [facility] Last Admin: 04/06/17 09:26 Dose: Not Given Heparin Sodium (Porcine) (Heparin) 5,000 units SC Q12 [facility] PRN Reason: Protocol Last Admin: 04/06/17 09:26 Dose: Not Given Hydralazine HCl (Apresoline) 75 mg PO DAILY [facility] Last Admin: 04/06/17 09:26 Dose: Not Given Azithromycin 500 mg/ Sodium (Chloride) 250 mls @ 250 mls/hr IVPB DAILY [facility] PRN Reason: Protocol Last Admin: 04/06/17 09:24 Dose: Not Given Piperacillin Sod/Tazobactam (Sod 2.25 gm/ Sodium Chloride) 100 mls @ 100 mls/ hr IVPB Q8 [facility] PRN Reason: Protocol Last Admin: 04/06/17 09:24 Dose: Not Given - Labs Labs: 04/03/17 20:30 04/03/17 21:03 PT 13.4 Seconds (9.8-13.1) H 04/02/17 15:35 INR 1.2 (0.9-1.2) 04/02/17 15:35 APTT 37.6 Seconds (25.6-37.1) H 04/02/17 15:35 Assessment and Plan (1) DVT prophylaxis Status: Acute (2) Pneumonia Status: Acute (3) CHF (congestive heart failure) Status: Acute (4) IDDM (insulin dependent diabetes mellitus) Status: Chronic (5) Chronic kidney disease requiring chronic dialysis Status: Chronic - Assessment and Plan (Free Text) Assessment: (1) DVT prophylaxis Assessment and Plan: scd and ae hose, heparin Status: Acute (2) Pneumonia Assessment and Plan: zosyn, zithromax, mucinex, duoneb monitor bw repeat xr Status: Acute (3) CHF (congestive heart failure) Assessment and Plan: cardio, dialysis echo-report noted Status: Acute (4) IDDM (insulin dependent diabetes mellitus) Assessment and Plan: riss home meds, diet Status: Chronic Priority: Medium (5) ESRD-cont dialysis schedule, nephro (6) pleural effusion, left pulm, IR consult for possible thoracentesis
[2017-04-06 14:47] LABS: HEMATOCRIT 32.9 % (35.0-51.0); MEAN CELL VOLUME 94.9 fl (80.0-94.0); MEAN CORPUSCULAR HEMOGLOBIN 30.7 pg (27.0-31.0); MEAN CORPUSCULAR HGB CONC 32.4 g/dL (33.0-37.0); RED CELL DISTRIBUTION WIDTH 16.9 % (11.5-14.5); WHITE BLOOD COUNT 3.2 K/uL (4.8-10.8)
[2017-04-06 15:05] LABS: CALCIUM 8.8 mg/dL (8.4-10.2)
[2017-04-06] MEDS: Lactobacillus Acidophilus 500 MU Cap PO SCH (17:15)
[2017-04-06] MEDS: Insulin Regular 100 units/ml SC SCH ×2 (17:16→22:00)
--- NOTE | 2017-04-06 17:58 | PN ---
DATE: SUBJECTIVE: Patient is currently undergoing hemodialysis. He denies any chest pain. PHYSICAL EXAMINATION: VITAL SIGNS: Blood pressure 145/81, heart rate 63, temperature 97.1, respirations 20. HEENT: Pale conjunctivae. CHEST: Absent breath sounds over the left base. HEART: S1 and S2, regular. EXTREMITIES: No pedal edema. LABORATORY DATA: Today's blood sugars are 107 and 164. Official echocardiographic study report revealed ejection fraction in the range of 10%-15% with global hypokinesis with [id number] mitral insufficiency and left atrial enlargement. ASSESSMENT: 1. Dilated cardiomyopathy. 2. End-stage renal disease, on hemodialysis. 3. 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 4. Pneumonia and left pleural effusion. RECOMMENDATIONS: Continue hydralazine 75 mg once a day, Zithromax 500 mg intravenously daily, Coreg 6.25 mg twice a day, heparin 5000 units q.12 hours, Norvasc 5 mg once a day, Zosyn 2.25 gm intravenous q.8 hours, Vasotec 20 mg orally twice a day. I would request EP evaluation for possible ICD placement. Dc La MD
[2017-04-07] MEDS: Insulin Regular 100 units/ml SC SCH ×4 (07:05→23:08)
--- NOTE | 2017-04-07 07:28 | CP.PCM.PN ---
Subjective - Date & Time of Evaluation Date of Evaluation: 04/07/17 Time of Evaluation: 07:28 - Subjective Subjective: pt comfortable in bed. no f/c, n/v/d. no cough/congestion/dyspnea. cont to refuse bw, zosyn, heparin is for ir today for thoracentesis Objective - Vital Signs/Intake and Output Vital Signs (last 24 hours): Temp Pulse Resp BP Pulse Ox 97 F L 64 20 145/70 100 04/07/17 00:15 04/07/17 07:02 04/07/17 00:15 04/07/17 07:02 04/07/17 00:15 - Medications Medications: Current Medications Acetaminophen (Tylenol 325mg Tab) 650 mg PO Q4 PRN PRN Reason: Pain, moderate (4-7) Last Admin: 04/03/17 15:27 Dose: 650 mg Albuterol/Ipratropium (Duoneb 3 Mg/0.5 Mg (3 Ml) Ud) 3 ml INH RQ4 PRN PRN Reason: Shortness of Breath Amlodipine Besylate (Norvasc) 5 mg PO DAILY [facility] Last Admin: 04/06/17 09:25 Dose: Not Given Carvedilol (Coreg) 6.25 mg PO Q12H [facility] Last Admin: 04/07/17 07:02 Dose: 6.25 mg Enalapril Maleate (Vasotec) 20 mg PO Q12H [facility] Last Admin: 04/06/17 07:34 Dose: 20 mg Guaifenesin/Dextromethorphan (Mucinex-Dm 600-30 Mg) 1 tab PO BID [facility] Last Admin: 04/06/17 17:15 Dose: Not Given Heparin Sodium (Porcine) (Heparin) 5,000 units SC Q12 [facility] PRN Reason: Protocol Last Admin: 04/06/17 22:00 Dose: Not Given Hydralazine HCl (Apresoline) 75 mg PO DAILY [facility] Last Admin: 04/06/17 09:26 Dose: Not Given Azithromycin 500 mg/ Sodium (Chloride) 250 mls @ 250 mls/hr IVPB DAILY [facility] PRN Reason: Protocol Last Admin: 04/06/17 09:24 Dose: Not Given Piperacillin Sod/Tazobactam (Sod 2.25 gm/ Sodium Chloride) 100 mls @ 100 mls/ hr IVPB Q8 [facility] PRN Reason: Protocol Last Admin: 04/07/17 00:25 Dose: Not Given Insulin Human Regular (Humulin R) 0 units SC ACHS [facility] PRN Reason: Protocol Last Admin: 04/07/17 07:05 Dose: Not Given Lactobacillus Acidophilus (Bacid Acidophilus) 1 cap PO BID [facility] Last Admin: 04/06/17 17:15 Dose: 1 cap - Labs Labs: 04/06/17 14:30 04/06/17 14:30 PT 14.8 Seconds (9.8-13.1) H 04/06/17 14:30 INR 1.3 (0.9-1.2) H 04/06/17 14:30 APTT 37.6 Seconds (25.6-37.1) H 04/02/17 15:35 - Constitutional Appears: Well, Non-toxic, No Acute Distress - Head Exam Head Exam: ATRAUMATIC, NORMAL INSPECTION, NORMOCEPHALIC - Eye Exam Eye Exam: EOMI, Normal appearance, PERRL Pupil Exam: NORMAL ACCOMODATION, PERRL - ENT Exam ENT Exam: Mucous Membranes Moist, Normal Exam - Neck Exam Neck Exam: Full ROM, Normal Inspection. absent: Lymphadenopathy - Respiratory Exam Respiratory Exam: Clear to Ausculation Bilateral, NORMAL BREATHING PATTERN - Cardiovascular Exam Cardiovascular Exam: REGULAR RHYTHM, RRR, +S1, +S2. absent: Murmur - GI/Abdominal Exam GI & Abdominal Exam: Soft, Normal Bowel Sounds. absent: Tenderness - Extremities Exam Extremities Exam: Full ROM, Normal Capillary Refill, Normal Inspection. absent : Joint Swelling, Pedal Edema - Back Exam Back Exam: NORMAL INSPECTION - Neurological Exam Neurological Exam: Alert, Awake, CN II-XII Intact, Normal Gait, Oriented x3 - Psychiatric Exam Psychiatric exam: Normal Affect, Normal Mood - Skin Skin Exam: Dry, Intact, Normal Color, Warm Assessment and Plan (1) DVT prophylaxis Status: Acute (2) Pneumonia Status: Acute (3) CHF (congestive heart failure) Status: Acute (4) IDDM (insulin dependent diabetes mellitus) Status: Chronic (5) Chronic kidney disease requiring chronic dialysis Status: Chronic - Assessment and Plan (Free Text) Assessment: (1) DVT prophylaxis Assessment and Plan: scd and ae hose, heparin-pt refusing Status: Acute (2) Pneumonia Assessment and Plan: zosyn, zithromax, mucinex, duoneb monitor bw repeat xr Status: Acute (3) CHF (congestive heart failure) Assessment and Plan: cardio, dialysis echo-report noted aicd consult w/ dr long pending Status: Acute (4) IDDM (insulin dependent diabetes mellitus) Assessment and Plan: riss home meds, diet Status: Chronic Priority: Medium (5) ESRD-cont dialysis schedule, nephro (6) pleural effusion, left pulm, IR consult for possible thoracentesis 7-pos bc-ID, repeat bc, zosyn and zithromax [id number] count 96-heme/onc, ?? r/t heparin, pt is refusing heparin
[2017-04-07] MEDS: Azithromycin 500 MG in Sodium Chloride 0.9% 250 ML IVPB SCH (09:00)
--- NOTE | 2017-04-07 09:05 | CP.PCM.CON ---
History of Present Illness - History of Present Illness History of Present Illness: 71 year old male with a history of HTN, ESRD on HD, presenting with cough, shortness of breath and fatigue, being treated for pneumonia, found to be pancytopenic. The patient denies blood problems in the past. He denies abnormal bleeding and bruising. Review of his blood work from the past shows he was leukopenic and thrombocytopenic since 2016. Past medical history: HTN, ESRD on HD Past surgical history: AV fistula Family history: Denies hematologic and oncologic problems Social history: Denies tobacco, alcohol, and illicit drug use. Allergies: NKA Review of systems: All remaining review of systems including HEENT, cardiovascular, respiratory, gastrointestinal, genitourinary, musculoskeletal dermatologic, neurologic, and psychiatric are negative unless mentioned in the HPI. Past Patient History - Infectious Disease Hx of Infectious Diseases: None - Past Medical History & Family History Past Medical History?: Yes - Past Social History Smoking Status: Former Smoker - CARDIAC Hx Congestive Heart Failure: Yes Hx Hypertension: Yes - PULMONARY Hx Respiratory Disorders: Yes Hx Pneumonia: Yes - NEUROLOGICAL Hx Neurological Disorder: Yes HX Cerebrovascular Accident: Yes (left sided hemiparesis 2 yrs ago) - HEENT Hx HEENT Problems: Yes - RENAL Hx Chronic Kidney Disease: Yes (hemodialysis m-w-f- left av shunt) Type of Dialysis Access: left arm AV shunt Date of Last Dialysis Treatment: 04/01/17 - ENDOCRINE/METABOLIC Hx Diabetes Mellitus Type 1: Yes Hx Diabetes Mellitus Type 2: Yes - HEMATOLOGICAL/ONCOLOGICAL Hx Blood Disorders: Yes Hx AIDS: No Hx Blood Transfusions: Yes Hx Blood Transfusion Reaction: No Hx Human Immunodeficiency Virus (HIV): No - INTEGUMENTARY Hx Dermatological Problems: No - MUSCULOSKELETAL/RHEUMATOLOGICAL Hx Musculoskeletal Disorders: No Hx Falls: Yes - GASTROINTESTINAL Hx Gastrointestinal Disorders: No - GENITOURINARY/GYNECOLOGICAL Hx Genitourinary Disorders: No Other/Comment: ANURIC - PSYCHIATRIC Hx Psychophysiologic Disorder: No Hx Substance Use: No - SURGICAL HISTORY Hx Surgeries: Yes Hx Amputation: Yes (right big toe) Other/Comment: Left AV shunt - ANESTHESIA Hx Anesthesia: Yes Hx Anesthesia Reactions: No Hx Malignant Hyperthermia: No Meds Allergies/Adverse Reactions: Allergies Allergy/AdvReac Type Severity Reaction Status Date / Time No Known Allergies Allergy Unverified 03/01/17 21:12 - Medications Medications: Current Medications Acetaminophen (Tylenol 325mg Tab) 650 mg PO Q4 PRN PRN Reason: Pain, moderate (4-7) Last Admin: 04/03/17 15:27 Dose: 650 mg Albuterol/Ipratropium (Duoneb 3 Mg/0.5 Mg (3 Ml) Ud) 3 ml INH RQ4 PRN PRN Reason: Shortness of Breath Amlodipine Besylate (Norvasc) 5 mg PO DAILY [facility] Last Admin: 04/06/17 09:25 Dose: Not Given Carvedilol (Coreg) 6.25 mg PO Q12H [facility] Last Admin: 04/07/17 07:02 Dose: 6.25 mg Enalapril Maleate (Vasotec) 20 mg PO Q12H [facility] Last Admin: 04/06/17 07:34 Dose: 20 mg Guaifenesin/Dextromethorphan (Mucinex-Dm 600-30 Mg) 1 tab PO BID [facility] Last Admin: 04/06/17 17:15 Dose: Not Given Heparin Sodium (Porcine) (Heparin) 5,000 units SC Q12 [facility]HAEL PRN Reason: Protocol Last Admin: 04/06/17 22:00 Dose: Not Given Hydralazine HCl (Apresoline) 75 mg PO DAILY [facility] Last Admin: 04/06/17 09:26 Dose: Not Given Azithromycin 500 mg/ Sodium (Chloride) 250 mls @ 250 mls/hr IVPB DAILY [facility] PRN Reason: Protocol Last Admin: 04/06/17 09:24 Dose: Not Given Piperacillin Sod/Tazobactam (Sod 2.25 gm/ Sodium Chloride) 100 mls @ 100 mls/ hr IVPB Q8 [facility]HAEL PRN Reason: Protocol Last Admin: 04/07/17 00:25 Dose: Not Given Insulin Human Regular (Humulin R) 0 units SC ACHS [facility] PRN Reason: Protocol Last Admin: 04/07/17 07:05 Dose: Not Given Lactobacillus Acidophilus (Bacid Acidophilus) 1 cap PO BID [facility] Last Admin: 04/06/17 17:15 Dose: 1 cap Physical Exam - Head Exam Head Exam: ATRAUMATIC - Eye Exam Eye Exam: Normal appearance - ENT Exam ENT Exam: Mucous Membranes Dry - Respiratory Exam Respiratory Exam: NORMAL BREATHING PATTERN - Cardiovascular Exam Cardiovascular Exam: +S1, +S2 - GI/Abdominal Exam GI & Abdominal Exam: Normal Bowel Sounds - Extremities Exam Extremities exam: Positive for: normal inspection - Neurological Exam Neurological exam: Oriented x3 - Psychiatric Exam Psychiatric exam: Flat Affect, Normal Mood - Skin Skin Exam: Warm Results - Vital Signs Recent Vital Signs: Last Vital Signs Temp 97.5 F L 04/07/17 08:00 Pulse 66 04/07/17 08:00 Resp 18 04/07/17 08:00 BP 133/68 04/07/17 08:00 Pulse Ox 100 04/07/17 08:00 - Labs Result Diagrams: 04/06/17 14:30 04/06/17 14:30 Labs: Laboratory Results - last 24 hr 04/06/17 04/06/17 04/06/17 11:39 14:30 14:30 WBC 3.2 L RBC 3.47 L Hgb 10.6 L Hct 32.9 L MCV 94.9 H MCH 30.7 MCHC 32.4 L RDW 16.9 H Plt Count 83 L Manual Plt Count PT INR Sodium 134 Potassium 4.0 Chloride 99 Carbon Dioxide 25 Anion Gap 14 BUN 19 Creatinine 2.4 H Est GFR ( Amer) 32 Est GFR (Non-Af Amer) 27 POC Glucose (mg/dL) 164 H Random Glucose 137 H Calcium 8.8 NT-Pro-B Natriuret Pep [id number] H 04/06/17 04/06/17 04/06/17 14:30 14:30 16:48 WBC RBC Hgb Hct MCV MCH MCHC RDW Plt Count Manual Plt Count 96 L PT 14.8 H INR 1.3 H Sodium Potassium Chloride Carbon Dioxide Anion Gap BUN Creatinine Est GFR ( Amer) Est GFR (Non-Af Amer) POC Glucose (mg/dL) 167 H Random Glucose Calcium NT-Pro-B Natriuret Pep 04/06/17 04/07/17 21:19 05:44 WBC RBC Hgb Hct MCV MCH MCHC RDW Plt Count Manual Plt Count PT INR Sodium Potassium Chloride Carbon Dioxide Anion Gap BUN Creatinine Est GFR ( Amer) Est GFR (Non-Af Amer) POC Glucose (mg/dL) 227 H 98 Random Glucose Calcium NT-Pro-B Natriuret Pep Assessment & Plan (1) Pancytopenia Assessment and Plan: will check HIV, hepatitis panel ferritin, retic count, b12, folate to further evaluate anemia; element of anemia of CKD, EPO per renal will evaluate for monoclonal protein ? underlying MDS; will require bone marrow evaluation if cytopenias worsen Status: Acute (2) Coagulopathy Assessment and Plan: likely nutritional Thank you for this interesting consult. Status: Acute
[2017-04-07] MEDS: guaiFENesin-DM 600-30 mg ER Tab PO SCH ×2 (09:53→18:17)
[2017-04-07] MEDS: Lactobacillus Acidophilus 500 MU Cap PO SCH ×2 (10:00→18:16)
--- NOTE | 2017-04-07 10:38 | CP.PCM.PN ---
Subjective - Date & Time of Evaluation Date of Evaluation: 04/07/17 Time of Evaluation: 10:36 - Subjective Subjective: Patient and bed Contracted Verbalizing No acute distress Objective - Vital Signs/Intake and Output Vital Signs (last 24 hours): Temp Pulse Resp BP Pulse Ox 97.5 F L 66 18 133/68 100 04/07/17 08:00 04/07/17 09:56 04/07/17 08:00 04/07/17 09:56 04/07/17 08:00 - Medications Medications: Current Medications Acetaminophen (Tylenol 325mg Tab) 650 mg PO Q4 PRN PRN Reason: Pain, moderate (4-7) Last Admin: 04/03/17 15:27 Dose: 650 mg Albuterol/Ipratropium (Duoneb 3 Mg/0.5 Mg (3 Ml) Ud) 3 ml INH RQ4 PRN PRN Reason: Shortness of Breath Amlodipine Besylate (Norvasc) 5 mg PO DAILY [facility] Last Admin: 04/07/17 09:53 Dose: 5 mg Carvedilol (Coreg) 6.25 mg PO Q12H [facility] Last Admin: 04/07/17 07:02 Dose: 6.25 mg Enalapril Maleate (Vasotec) 20 mg PO Q12H [facility] Last Admin: 04/07/17 07:00 Dose: 20 mg Guaifenesin/Dextromethorphan (Mucinex-Dm 600-30 Mg) 1 tab PO BID [facility] Last Admin: 04/07/17 09:53 Dose: 1 tab Heparin Sodium (Porcine) (Heparin) 5,000 units SC Q12 [facility] PRN Reason: Protocol Last Admin: 04/07/17 09:56 Dose: Not Given Hydralazine HCl (Apresoline) 75 mg PO DAILY [facility] Last Admin: 04/07/17 09:56 Dose: 75 mg Azithromycin 500 mg/ Sodium (Chloride) 250 mls @ 250 mls/hr IVPB DAILY [facility] PRN Reason: Protocol Last Admin: 04/07/17 09:00 Dose: 250 mls/hr Piperacillin Sod/Tazobactam (Sod 2.25 gm/ Sodium Chloride) 100 mls @ 100 mls/ hr IVPB Q8 [facility] PRN Reason: Protocol Last Admin: 04/07/17 09:00 Dose: 100 mls/hr Insulin Human Regular (Humulin R) 0 units SC ACHS [facility] PRN Reason: Protocol Last Admin: 04/07/17 07:05 Dose: Not Given Lactobacillus Acidophilus (Bacid Acidophilus) 1 cap PO BID [facility] Last Admin: 04/07/17 10:00 Dose: 1 cap - Labs Labs: 04/06/17 14:30 04/06/17 14:30 PT 14.8 Seconds (9.8-13.1) H 04/06/17 14:30 INR 1.3 (0.9-1.2) H 04/06/17 14:30 APTT 37.6 Seconds (25.6-37.1) H 04/02/17 15:35 - Constitutional Appears: No Acute Distress - ENT Exam ENT Exam: Mucous Membranes Moist - Respiratory Exam Respiratory Exam: NORMAL BREATHING PATTERN. absent: Chest Wall Tenderness - Cardiovascular Exam Cardiovascular Exam: absent: JVD, Rubs - GI/Abdominal Exam GI & Abdominal Exam: Normal Bowel Sounds - Extremities Exam Extremities Exam: absent: Calf Tenderness - Back Exam Back Exam: absent: CVA tenderness (L), CVA tenderness (R) - Neurological Exam Neurological Exam: Awake - Psychiatric Exam Psychiatric exam: Flat Affect Assessment and Plan (1) Chronic kidney disease, stage V requiring chronic dialysis Assessment & Plan: End stage renal disease on maintenance dialysis he tolerated dialysis yesterday and he is for MWF Patient receiving antibiotics Blood culture noted Repeat blood culture came back negative after the initial one Continue monitor Status: Acute (2) Pneumonia Status: Acute
--- NOTE | 2017-04-07 12:27 | PCM.SURG1 ---
Surgeon's Initial Post Op Note - Surgeon's Notes Surgeon: Jonathan Katz MD Sales Order Administrator: NONE Type of Anesthesia: Local Pre-Operative Diagnosis: Left pleural effusion Operative Findings: US showed a moderate left effusion Post-Operative Diagnosis: Left pleural effusion Operation Performed: US guided left thoracentesis. Specimen/Specimens Removed: 450 cc of straw colored fluid Estimated Blood Loss: EBL {In ML}: 0 Blood Products Given: N/A Drains Used: No Drains Post-Op Condition: Fair Date of Surgery/Procedure: 04/07/17 Time of Surgery/Procedure: 12:25
--- NOTE | 2017-04-07 14:01 | RAD ---
PROCEDURE: CHEST RADIOGRAPH, 1 VIEW HISTORY: Status post left thoracentesis. COMPARISON: 03/26/2017 FINDINGS: LUNGS: Improved aeration of the left lung. Decrease in pulmonary edema. PLEURA: No pneumothorax following thoracentesis. CARDIOVASCULAR: Normal. OSSEOUS STRUCTURES: No significant abnormalities. VISUALIZED UPPER ABDOMEN: Normal. OTHER FINDINGS: None. IMPRESSION: No adverse findings following thoracentesis. Improved aeration of the left lung identified.
[2017-04-07 14:12] LABS: LDH,BODY FLUID 117 IU (NONE ESTABLISHED)
[2017-04-07 14:18] LABS: BODY FLUID TYPE PLEURAL/THORACENTESI
[2017-04-07 14:24] LABS: BF GROSS APPEARANCE CLEAR (CLEAR)
[2017-04-07 14:25] LABS: BODY FLUID TOTAL COUNT 100 (0-0)
--- NOTE | 2017-04-07 14:42 | PN ---
DATE: SUBJECTIVE: The patient denies any chest pain. PHYSICAL EXAMINATION VITAL SIGNS: Blood pressure 133/68, heart rate 66, temperature 97.5, respirations 18. HEENT: Pale conjunctivae. CHEST: Absent breath sounds over the left base. HEART: S1 and S2, regular. EXTREMITIES: No edema. ASSESSMENT: 1. Dilated cardiomyopathy. 2. Left pleural effusion. 3. End-stage renal disease, on hemodialysis. 4. History of cerebrovascular accident with residual left hemiplegia. RECOMMENDATIONS: Continue hydralazine 75 mg daily, Zithromax 500 mg intravenously daily, Coreg 6.25 mg twice a day. Subcutaneous heparin is on hold today. Continue Norvasc 5 mg once a day, Zosyn 2.25 g intravenous q.8 hours, Lasix 20 mg orally twice a day. The patient will undergo left thoracocentesis. Case was discussed with the patient's . Bombsight Specialist, Dr. Law, was consulted for a possible ICD placement. According to the , the patient has coronary artery stent many years ago; however, she is not willing to consent for cardiac catheterization at this time. Dc La MD
--- NOTE | 2017-04-07 14:48 | CON ---
HISTORY OF PRESENT ILLNESS: Mr. Hussein is a 71-year-old male who was referred for pulmonary evaluation by Zack Esquivel because of cough with some shortness of breath and what appears to be fluid overload on a chest x-ray. He had missed his dialysis session and has a history of end-stage renal disease and cerebrovascular accident. No other history is obtained. PHYSICAL EXAMINATION GENERAL: The patient is awake and alert, appears to be slightly more comfortable since admission. VITAL SIGNS: Remarkable for blood pressure of 133/68 with a pulse of 66, respiratory rate is 18, he is afebrile, O2 sat 100% on room air. SKIN: Shows fair turgor. HEENT: Pupils equal, reactive to light and accommodation. NECK: JVP flat. HEART: S1 and S2. LUNGS: Fair aeration with bilateral dullness of both lung winter with left side worse than right with moderate rales. ABDOMEN: Soft, nontender. No organomegaly. EXTREMITIES: Left-sided hemiparesis. GENITALIA: Deferred. RECTAL: Deferred. LABORATORY STUDIES: Chest x-ray shows pulmonary congestion with left pleural effusion. WBC 3.2, hemoglobin 10.6, platelet count of 83,000. Sodium 134, potassium 4.0, BUN 19, creatinine 2.4, proBNP 295,000. IMPRESSION: Pulmonary congestion with pleural effusion secondary to end-stage renal disease and fluid overload. One has to rule out superimposed pneumonia. History of cerebrovascular accident. PLAN: Consider hemodialysis. Thoracentesis for analysis of pleural effusion. Agree with IV antibiotic empirically. We will continue to follow with you. Quoc Larson MD
--- NOTE | 2017-04-07 16:53 | CP.PCM.PN ---
Subjective - Date & Time of Evaluation Date of Evaluation: 04/07/17 Time of Evaluation: 16:52 - Subjective Subjective: I D NOTE PATIENT EXAMINED ,CHART REVIEWED FULL CONSULT DICTATED Objective - Vital Signs/Intake and Output Vital Signs (last 24 hours): Temp Pulse Resp BP Pulse Ox 97.0 F L 58 L 18 110/73 100 04/07/17 16:22 04/07/17 16:22 04/07/17 16:22 04/07/17 16:22 04/07/17 16:22 - Medications Medications: Current Medications Acetaminophen (Tylenol 325mg Tab) 650 mg PO Q4 PRN PRN Reason: Pain, moderate (4-7) Last Admin: 04/03/17 15:27 Dose: 650 mg Albuterol/Ipratropium (Duoneb 3 Mg/0.5 Mg (3 Ml) Ud) 3 ml INH RQ4 PRN PRN Reason: Shortness of Breath Amlodipine Besylate (Norvasc) 5 mg PO DAILY [facility] Last Admin: 04/07/17 09:53 Dose: 5 mg Carvedilol (Coreg) 6.25 mg PO Q12H [facility] Last Admin: 04/07/17 07:02 Dose: 6.25 mg Enalapril Maleate (Vasotec) 20 mg PO Q12H [facility] Last Admin: 04/07/17 07:00 Dose: 20 mg Guaifenesin/Dextromethorphan (Mucinex-Dm 600-30 Mg) 1 tab PO BID [facility] Last Admin: 04/07/17 09:53 Dose: 1 tab Heparin Sodium (Porcine) (Heparin) 5,000 units SC Q12 [facility]HAEL PRN Reason: Protocol Last Admin: 04/07/17 09:56 Dose: Not Given Hydralazine HCl (Apresoline) 75 mg PO DAILY [facility] Last Admin: 04/07/17 09:56 Dose: 75 mg Azithromycin 500 mg/ Sodium (Chloride) 250 mls @ 250 mls/hr IVPB DAILY [facility] PRN Reason: Protocol Last Admin: 04/07/17 09:00 Dose: 250 mls/hr Piperacillin Sod/Tazobactam (Sod 2.25 gm/ Sodium Chloride) 100 mls @ 100 mls/ hr IVPB Q8 [facility] PRN Reason: Protocol Last Admin: 04/07/17 09:00 Dose: 100 mls/hr Insulin Human Regular (Humulin R) 0 units SC ACHS [facility] PRN Reason: Protocol Last Admin: 04/07/17 07:05 Dose: Not Given Lactobacillus Acidophilus (Bacid Acidophilus) 1 cap PO BID [facility] Last Admin: 04/07/17 10:00 Dose: 1 cap - Labs Labs: 04/06/17 14:30 04/06/17 14:30 PT 14.8 Seconds (9.8-13.1) H 04/06/17 14:30 INR 1.3 (0.9-1.2) H 04/06/17 14:30 APTT 37.6 Seconds (25.6-37.1) H 04/02/17 15:35
--- NOTE | 2017-04-08 03:00 | CON ---
INFECTIOUS DISEASE CONSULT DATE: The patient is in Room 405, bed 2. HISTORY OF PRESENT ILLNESS: The patient is a 71-year-old male who is being seen on infectious disease consult for a positive blood culture, one of two bottles of a gram-positive shanda. The patient was admitted because of cough and shortness of breath. This may have been secondary to the fluid dialysis, noted on chest x-ray; apparently, he had missed his hemodialysis and has history of end-stage renal disease. The positive blood culture noted may be just a contaminant such as corynebacterium, although other pathogenic bacteria cannot be ruled out until the identification is received. The patient is awake. When I saw him, he was subdued as he had been sleeping, and his only complaint verbally today was that he was cold. He did not give any history of chills, but he did say he had a cough. PHYSICAL EXAMINATION: HEENT: There is some facial wasting noted. NECK: Supple. HEART: Regular sinus rhythm. LUNGS: Decreased breath sounds with rales at both bases, right greater than left. ABDOMEN: Soft. Positive bowel sounds. EXTREMITIES: He has left-sided hemiparesis. LABORATORY DATA: The chest x-ray shows left pleural effusion. White count is 3.2, hemoglobin 10.6, and platelet count is 83,000. BUN 19, creatinine is 2.4. ProBNP is 295,000. IMPRESSION AND PLAN: Positive blood culture, which may be contaminant. Awaiting followup blood cultures and for identification of the positive blood culture. Additionally, patient has pulmonary congestion and has end-stage renal disease, chronic obstructive pulmonary disease, history of cerebrovascular accident, pneumonia included in the respiratory grouping, congestive heart failure, diabetes. At present time as we were awaiting the blood cultures, I see no reason to change the present antibiotic regimen, which is Zosyn and Zithromax. We will follow with you as we will be checking on the blood culture, the identification and the followup blood cultures. Michele Sen MD
[2017-04-08] MEDS: Insulin Regular 100 units/ml SC SCH ×3 (07:24→16:02)
--- NOTE | 2017-04-08 08:33 | PQF GENQUE ---
This form is a permanent part of the medical record 04/08/17 Zack Esquivel APN, Please clarify type/underlying cause of pleural effusion AFTER WORK-UP if known. Patient with a history of CHF and ESRD presents with weakness, cough and SOB. CXR infiltrate or atelectasis with pleural effusion. Thoracentesis performed on the left side. Pleural fluid culture pending. Pleural fluid analysis: WBC 56 , RBC 1584, Total cell count 100, Neutrophils 1.0, Lymphocytes 92, Monocytes 7, glucose 122, t protein <2.0 LDH 117, fluid clear. Treated with single dose Lasix , IVAB and hemodialysis. Clarification of your documentation is requested to better reflect the severity of illness and intensity of treatment of your patient. Indicators present [] Specify: [] [] Specify: [] [] Specify: [] [] Specify: [] Location in the medical record that reflects the above clinical findings: [] Treatment Provided: [] PHYSICIAN'S RESPONSE Please clarify type/underlying cause of pleural effusion: [] Bacterial (please specify causative organism if known) [x] Congestive [] Hemothorax [] Hydropneumothorax [] Malignant (please specify primary malignancy site if known) [] Systemic lupus erythematosus [] Other type not specified above (please specify) [] Clinically unable to determine [] Unknown Based on your medical judgment of the clinical indicators outlined above please clarify the following: [] Practitioner response r/t low ef and chf [] If unable to determine, please check the box, sign and date. Present On Admission (POA) Indicator: [x] Present at the time of admission [] Not present at the time of admission [] Clinically Undetermined In responding to this query, please exercise your independent professional judgment. The fact that a question is asked does not imply that any particular answer is desired or expected. Thank you for your clarification on this documentation. If you have any questions please call:[phone] * Thank you, Felecia Huston RN CDMP [facility]
--- NOTE | 2017-04-08 08:40 | CP.PCM.PN ---
Subjective - Date & Time of Evaluation Date of Evaluation: 04/08/17 Time of Evaluation: 08:40 - Subjective Subjective: pt doign well, no complaints. no f/c, n/v/d. still refusing zosyn and heparin. for mert once cleared. no dyspnea or compaints s/p thoracentesis. no cough/ congestion pt offered and refused aicd by EP for mert today afte rdialysis Objective - Vital Signs/Intake and Output Vital Signs (last 24 hours): Temp Pulse Resp BP Pulse Ox 97.0 F L 62 20 162/78 H 95 04/08/17 08:15 04/08/17 08:15 04/08/17 08:15 04/08/17 08:15 04/08/17 08:15 - Medications Medications: Current Medications Acetaminophen (Tylenol 325mg Tab) 650 mg PO Q4 PRN PRN Reason: Pain, moderate (4-7) Last Admin: 04/03/17 15:27 Dose: 650 mg Albuterol/Ipratropium (Duoneb 3 Mg/0.5 Mg (3 Ml) Ud) 3 ml INH RQ4 PRN PRN Reason: Shortness of Breath Amlodipine Besylate (Norvasc) 5 mg PO DAILY [facility] Last Admin: 04/07/17 09:53 Dose: 5 mg Carvedilol (Coreg) 6.25 mg PO Q12H [facility] Last Admin: 04/08/17 05:53 Dose: Not Given Enalapril Maleate (Vasotec) 20 mg PO Q12H [facility] Last Admin: 04/08/17 07:24 Dose: Not Given Guaifenesin/Dextromethorphan (Mucinex-Dm 600-30 Mg) 1 tab PO BID [facility] Last Admin: 04/07/17 18:17 Dose: 1 tab Heparin Sodium (Porcine) (Heparin) 5,000 units SC Q12 [facility] PRN Reason: Protocol Last Admin: 04/07/17 22:31 Dose: Not Given Hydralazine HCl (Apresoline) 75 mg PO DAILY [facility] Last Admin: 04/07/17 09:56 Dose: 75 mg Azithromycin 500 mg/ Sodium (Chloride) 250 mls @ 250 mls/hr IVPB DAILY [facility] PRN Reason: Protocol Last Admin: 04/07/17 09:00 Dose: 250 mls/hr Piperacillin Sod/Tazobactam (Sod 2.25 gm/ Sodium Chloride) 100 mls @ 100 mls/ hr IVPB Q8 [facility] PRN Reason: Protocol Last Admin: 04/08/17 00:32 Dose: Not Given Insulin Human Regular (Humulin R) 0 units SC ACHS [facility]EL PRN Reason: Protocol Last Admin: 04/08/17 07:24 Dose: Not Given Lactobacillus Acidophilus (Bacid Acidophilus) 1 cap PO BID [facility] Last Admin: 04/07/17 18:16 Dose: 1 cap - Labs Labs: 04/06/17 14:30 04/06/17 14:30 PT 14.8 Seconds (9.8-13.1) H 04/06/17 14:30 INR 1.3 (0.9-1.2) H 04/06/17 14:30 APTT 37.6 Seconds (25.6-37.1) H 04/02/17 15:35 - Constitutional Appears: Well, Non-toxic, No Acute Distress - Head Exam Head Exam: ATRAUMATIC, NORMAL INSPECTION, NORMOCEPHALIC - Eye Exam Eye Exam: EOMI, Normal appearance, PERRL Pupil Exam: NORMAL ACCOMODATION, PERRL - ENT Exam ENT Exam: Mucous Membranes Moist, Normal Exam - Neck Exam Neck Exam: Full ROM, Normal Inspection. absent: Lymphadenopathy - Respiratory Exam Respiratory Exam: Clear to Ausculation Bilateral, NORMAL BREATHING PATTERN - Cardiovascular Exam Cardiovascular Exam: REGULAR RHYTHM, RRR, +S1, +S2. absent: Murmur - GI/Abdominal Exam GI & Abdominal Exam: Soft, Normal Bowel Sounds. absent: Tenderness - Extremities Exam Extremities Exam: Full ROM, Normal Capillary Refill, Normal Inspection. absent : Joint Swelling, Pedal Edema - Back Exam Back Exam: NORMAL INSPECTION - Neurological Exam Neurological Exam: Abnormal Gait, Alert, Awake, CN II-XII Intact, Oriented x3 - Psychiatric Exam Psychiatric exam: Normal Affect, Normal Mood - Skin Skin Exam: Dry, Intact, Normal Color, Warm Assessment and Plan (1) DVT prophylaxis Assessment & Plan: scd and ae hose pt cont t refuse heparin Status: Acute (2) Pneumonia Assessment & Plan: ?? pna vs pleural effusion. pt is on zithromax but refusing zosyn no s/s pna Status: Acute (3) CHF (congestive heart failure) Assessment & Plan: cont esrd cardio and ep notes apriciated. pt refused aicd Status: Acute (4) IDDM (insulin dependent diabetes mellitus) Assessment & Plan: riss, fsbg Status: Chronic (5) Chronic kidney disease requiring chronic dialysis Assessment & Plan: esrd, nephro Status: Chronic - Assessment and Plan (Free Text) Assessment: dialated cardiomyopathy-ep, refused aicd pos bc-id cleared for dc on augmentin, thinks is contaminant
[2017-04-08] MEDS: Lactobacillus Acidophilus 500 MU Cap PO SCH ×2 (09:13→16:29)
[2017-04-08] MEDS: guaiFENesin-DM 600-30 mg ER Tab PO SCH ×2 (09:14→16:27)
[2017-04-08] MEDS: Azithromycin 500 MG in Sodium Chloride 0.9% 250 ML IVPB SCH (09:15)
--- NOTE | 2017-04-08 10:18 | CP.PCM.PN ---
Subjective - Date & Time of Evaluation Date of Evaluation: 04/08/17 Time of Evaluation: 10:19 - Subjective Subjective: SOB IMPROVED NO CHEST PAINS S/P THORACENTESES WITH DRAINAGE OF MORE THAN 400 CC OF PLEURAL FLUID Objective - Vital Signs/Intake and Output Vital Signs (last 24 hours): Temp Pulse Resp BP Pulse Ox 97 F L 62 20 162/78 H 95 04/08/17 09:00 04/08/17 09:00 04/08/17 09:00 04/08/17 09:14 04/08/17 09:00 - Medications Medications: Current Medications Acetaminophen (Tylenol 325mg Tab) 650 mg PO Q4 PRN PRN Reason: Pain, moderate (4-7) Last Admin: 04/03/17 15:27 Dose: 650 mg Albuterol/Ipratropium (Duoneb 3 Mg/0.5 Mg (3 Ml) Ud) 3 ml INH RQ4 PRN PRN Reason: Shortness of Breath Amlodipine Besylate (Norvasc) 5 mg PO DAILY [facility] Last Admin: 04/08/17 09:14 Dose: 5 mg Carvedilol (Coreg) 6.25 mg PO Q12H [facility] Last Admin: 04/08/17 05:53 Dose: Not Given Enalapril Maleate (Vasotec) 20 mg PO Q12H [facility] Last Admin: 04/08/17 07:24 Dose: Not Given Guaifenesin/Dextromethorphan (Mucinex-Dm 600-30 Mg) 1 tab PO BID [facility] Last Admin: 04/08/17 09:14 Dose: 1 tab Heparin Sodium (Porcine) (Heparin) 5,000 units SC Q12 [facility]EL PRN Reason: Protocol Last Admin: 04/08/17 09:13 Dose: Not Given Hydralazine HCl (Apresoline) 75 mg PO DAILY [facility] Last Admin: 04/08/17 09:13 Dose: 75 mg Azithromycin 500 mg/ Sodium (Chloride) 250 mls @ 250 mls/hr IVPB DAILY [facility] PRN Reason: Protocol Last Admin: 04/08/17 09:15 Dose: Not Given Piperacillin Sod/Tazobactam (Sod 2.25 gm/ Sodium Chloride) 100 mls @ 100 mls/ hr IVPB Q8 [facility]HAEL PRN Reason: Protocol Last Admin: 04/08/17 09:16 Dose: Not Given Insulin Human Regular (Humulin R) 0 units SC ACHS [facility] PRN Reason: Protocol Last Admin: 04/08/17 07:24 Dose: Not Given Lactobacillus Acidophilus (Bacid Acidophilus) 1 cap PO BID [facility] Last Admin: 04/08/17 09:13 Dose: 1 cap - Labs Labs: 04/06/17 14:30 04/06/17 14:30 PT 14.8 Seconds (9.8-13.1) H 04/06/17 14:30 INR 1.3 (0.9-1.2) H 04/06/17 14:30 APTT 37.6 Seconds (25.6-37.1) H 04/02/17 15:35 - Constitutional Appears: Chronically Ill - Head Exam Head Exam: ATRAUMATIC, NORMAL INSPECTION, NORMOCEPHALIC - Eye Exam Eye Exam: EOMI, Normal appearance, PERRL Pupil Exam: NORMAL ACCOMODATION, PERRL - ENT Exam ENT Exam: Mucous Membranes Moist, Normal Exam - Neck Exam Neck Exam: Full ROM, Normal Inspection. absent: Lymphadenopathy - Respiratory Exam Respiratory Exam: Decreased Breath Sounds, NORMAL BREATHING PATTERN - Cardiovascular Exam Cardiovascular Exam: REGULAR RHYTHM, +S1, +S2. absent: Murmur - GI/Abdominal Exam GI & Abdominal Exam: Soft, Normal Bowel Sounds. absent: Tenderness - Rectal Exam Rectal Exam: NORMAL INSPECTION - Extremities Exam Extremities Exam: Full ROM, Normal Capillary Refill, Normal Inspection. absent : Joint Swelling, Pedal Edema - Back Exam Back Exam: NORMAL INSPECTION - Neurological Exam Neurological Exam: Alert, Awake, CN II-XII Intact, Normal Gait, Oriented x3 - Psychiatric Exam Psychiatric exam: Normal Affect, Normal Mood - Skin Skin Exam: Dry, Intact, Normal Color, Warm Assessment and Plan - Assessment and Plan (Free Text) Assessment: ESRD WITH PLEURAL EFFUSION PNEUMONIA Plan: AGREE WITH PRESENT RX SERIAL CXRS UNTIL PLEURAL EFFUSION COMPLETELY RESOLVES AWAIT PLEURAL FLUID RESULTS
--- NOTE | 2017-04-08 14:43 | CP.PCM.PN ---
Subjective - Date & Time of Evaluation Date of Evaluation: 04/08/17 Time of Evaluation: 14:41 - Subjective Subjective: Patient remained intubated chronically ill and debilitated He was seen on hemodialysis now Discussed with the director fraud Order in place No nausea or vomiting Objective - Vital Signs/Intake and Output Vital Signs (last 24 hours): Temp Pulse Resp BP Pulse Ox 96.8 F L 69 20 150/69 95 04/08/17 13:00 04/08/17 13:00 04/08/17 13:00 04/08/17 13:00 04/08/17 13:00 - Medications Medications: Current Medications Acetaminophen (Tylenol 325mg Tab) 650 mg PO Q4 PRN PRN Reason: Pain, moderate (4-7) Last Admin: 04/03/17 15:27 Dose: 650 mg Albuterol/Ipratropium (Duoneb 3 Mg/0.5 Mg (3 Ml) Ud) 3 ml INH RQ4 PRN PRN Reason: Shortness of Breath Amlodipine Besylate (Norvasc) 5 mg PO DAILY [facility] Last Admin: 04/08/17 09:14 Dose: 5 mg Carvedilol (Coreg) 6.25 mg PO Q12H [facility] Last Admin: 04/08/17 05:53 Dose: Not Given Enalapril Maleate (Vasotec) 20 mg PO Q12H [facility] Last Admin: 04/08/17 07:24 Dose: Not Given Guaifenesin/Dextromethorphan (Mucinex-Dm 600-30 Mg) 1 tab PO BID [facility] Last Admin: 04/08/17 09:14 Dose: 1 tab Heparin Sodium (Porcine) (Heparin) 5,000 units SC Q12 MICHAEL PRN Reason: Protocol Last Admin: 04/08/17 09:13 Dose: Not Given Hydralazine HCl (Apresoline) 75 mg PO DAILY [facility] Last Admin: 04/08/17 09:13 Dose: 75 mg Azithromycin 500 mg/ Sodium (Chloride) 250 mls @ 250 mls/hr IVPB DAILY [facility] PRN Reason: Protocol Last Admin: 04/08/17 09:15 Dose: Not Given Piperacillin Sod/Tazobactam (Sod 2.25 gm/ Sodium Chloride) 100 mls @ 100 mls/ hr IVPB Q8 [facility]HAEL PRN Reason: Protocol Last Admin: 04/08/17 09:16 Dose: Not Given Insulin Human Regular (Humulin R) 0 units SC ACHS [facility] PRN Reason: Protocol Last Admin: 04/08/17 12:39 Dose: Not Given Lactobacillus Acidophilus (Bacid Acidophilus) 1 cap PO BID [facility] Last Admin: 04/08/17 09:13 Dose: 1 cap - Labs Labs: 04/06/17 14:30 04/06/17 14:30 PT 14.8 Seconds (9.8-13.1) H 04/06/17 14:30 INR 1.3 (0.9-1.2) H 04/06/17 14:30 APTT 37.6 Seconds (25.6-37.1) H 04/02/17 15:35 - Constitutional Appears: No Acute Distress - ENT Exam ENT Exam: Mucous Membranes Moist - Respiratory Exam Respiratory Exam: absent: Chest Wall Tenderness, NORMAL BREATHING PATTERN - Cardiovascular Exam Cardiovascular Exam: REGULAR RHYTHM. absent: JVD, Rubs - GI/Abdominal Exam GI & Abdominal Exam: Soft, Normal Bowel Sounds - Extremities Exam Extremities Exam: absent: Calf Tenderness - Back Exam Back Exam: absent: CVA tenderness (L), CVA tenderness (R) - Neurological Exam Neurological Exam: Altered Assessment and Plan (1) Chronic kidney disease, stage V requiring chronic dialysis Assessment & Plan: End stage renal disease was seen on hemodialysis now Tolerating well Ultrafiltration 2000 mL Potassium bath to milliequivalents Bicarbonate bath 38 Patient receiving antibiotics for the pneumonia Debilitated patient is being transferred to subacute nursing home for further physiotherapy Status: Acute (2) Pneumonia Status: Acute
[2017-04-08 15:35] VITALS: BP 140/73; PULSE 67; RESP 18; TEMP 97.5; O2SAT 98
[2017-04-09 05:16] LABS: TOTAL PROTEIN, SERUM 5.9 g/dL (6.1-8.1)
--- NOTE | 2017-04-09 07:27 | CON ---
ELECTROPHYSIOLOGY CONSULTATION DATE: 04/08/2017 PHYSICIAN REQUESTING CONSULT: Dc La MD Thank you very much for this consult. REASON FOR EVALUATION: 1. Dilated cardiomyopathy, evaluation for AICD for primary prevention of sudden cardiac . 2. Right bundle branch block. 3. History of CVA. 4. Pneumonia. HISTORY OF PRESENT ILLNESS: Mr. Merlin Hussein is a 71 [facility] with past medical history significant for end-stage renal disease on hemodialysis over the last 12 years, history of stroke with hemiplegia 5 years ago and he is currently bedridden, admitted initially for worsening shortness of breath and diagnosed with pneumonia on outpatient chest x-ray. Patient has a history of congestive heart failure with an ejection fraction of 25% for the last year. In addition, patient had a large pleural effusion as well for which drainage was required. I have been asked to see him in regards to his finding of dilated cardiomyopathy as well as his candidacy for a possible AICD implantation. PAST MEDICAL HISTORY: As mentioned previously, hypertension, end stage renal disease, CVA, congestive heart failure, left sided pleural effusion. 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 He denies any drugs or excessive EtOH use. 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 MEDICATIONS: Currently include hydralazine 75 mg daily, Coreg 6.25 mg p.o. daily, enalapril 20 mg p.o. q. 12 hours. REVIEW OF SYSTEMS: Denies any active HEENT complaints. No chest pain, palpitations, loss of consciousness, before mentioned shortness of breath has improved, no urinary complaints, no musculoskeletal or dermatological issues. No psychosocial stressors. LABORATORY DATA: On review of lab work, the patient has a white count of 3.2, H and H were 10.6 and 32.9, platelets of 83, BUN and creatinine is 19 and 2.4 respectively, glucose is 137. On review of 12-lead EKG, patient is in normal sinus rhythm at 80 beats per minute. Patient has a right bundle branch block with ST-T wave changes, which may be secondary to repolarization abnormality as a result of abnormal depolarization. QT, QTc is prolonged at 474 and 546 respectively. PHYSICAL EXAMINATION VITAL SIGNS: Temperature is 97.0, pulse is 62, respirations of 20, blood pressure is 162/78. GENERAL: He is a debilitated male in no acute distress, able to speak in complete sentences. HEENT: Examination of his head is normocephalic, atraumatic. There is no harriet facial asymmetry. Extraocular movements are intact. Pupils are equally round and reactive to light and accommodation. NECK: Supple. No jugular venous distention. No carotid bruits. CHEST: Clear to auscultation bilaterally. CARDIOPULMONARY: PMI is displaced past the midclavicular line. ABDOMEN: The patient has normal bowel sounds. EXTREMITIES: No cyanosis, clubbing. Lower extremities are significant for significant wasting. Peripheral pulses are weakened. Bilateral lower extremities, there is pedal edema present. ASSESSMENT AND PLAN: 1. Dilated cardiomyopathy for which patient is on reasonable medical therapy. At this point would be in theory, a candidate for an implantable defibrillator for primary prevention of sudden cardiac . At this point the patient wishes not to pursue a defibrillator, he is aware of the risks of sudden cardiac . At this point he welcomes sudden if it were to occur. Patient does have prolonged morbidity and at this point does not wish to prolong his life or sustain any further harm from possible defibrillation. I do not believe this is an unwise decision. He is alert and oriented and is fully capable of making decisions. 2. Right bundle branch block, which at this point may cause certain degree of left ventricular dysfunction, at this point not a candidate for any corrective implantation. 3. History of cerebrovascular accident, which has left him bedridden. 4. Pneumonia, for which he is being treated by the medical team. Thank you for allowing me to participate in the care of your patient, please do not hesitate to call for any questions with regards to his care. Hood Law MD
--- NOTE | 2017-04-09 08:16 | CP.PCM.DIS ---
Provider - Provider Date of Admission: 04/02/17 18:23 Attending physician: Jefe Little MD Time Spent in preparation of Discharge (in minutes): 15 Diagnosis - Discharge Diagnosis (1) DVT prophylaxis Status: Acute (2) Pneumonia Status: Acute (3) CHF (congestive heart failure) Status: Acute (4) IDDM (insulin dependent diabetes mellitus) Status: Chronic Priority: Medium (5) Chronic kidney disease requiring chronic dialysis Status: Chronic Priority: High Hospital Course - Lab Results Lab Results: Micro Results 04/02/17 17:30 Blood Blood Culture - Final Corynebacterium Species 04/02/17 17:30 Blood Gram Stain - Final 04/07/17 08:45 Blood Blood Culture - Preliminary NO GROWTH AFTER 24 HOURS 04/07/17 13:17 Body Fluid - Lung-Left Gram Stain - Final 04/07/17 13:17 Body Fluid - Lung-Left Body Fluid Culture - Preliminary NO GROWTH AFTER 24 HOURS 04/02/17 18:00 Blood Blood Culture - Final NO GROWTH AFTER 5 DAYS 04/02/17 18:00 Blood Gram Stain - Final TEST NOT PERFORMED Most Recent Lab Values WBC 3.2 K/uL (4.8-10.8) L 04/06/17 14:30 RBC 3.47 Mil/uL (4.40-5.90) L 04/06/17 14:30 Hgb 10.6 g/dL (12.0-18.0) L 04/06/17 14:30 Hct 32.9 % (35.0-51.0) L 04/06/17 14:30 MCV 94.9 fl (80.0-94.0) H 04/06/17 14:30 MCH 30.7 pg (27.0-31.0) 04/06/17 14:30 MCHC 32.4 g/dL (33.0-37.0) L 04/06/17 14:30 RDW 16.9 % (11.5-14.5) H 04/06/17 14:30 Plt Count 83 K/uL (130-400) L 04/06/17 14:30 Manual Plt Count 96 K/uL (130-400) L 04/06/17 14:30 MPV 9.1 fl (7.2-11.7) 04/02/17 15:35 Neut % (Auto) 58.8 % (50.0-75.0) 04/02/17 15:35 Lymph % (Auto) 23.1 % (20.0-40.0) 04/02/17 15:35 [place] % (Auto) 13.9 % (0.0-10.0) H 04/02/17 15:35 Eos % (Auto) 1.5 % (0.0-4.0) 04/02/17 15:35 Baso % (Auto) 2.7 % (0.0-2.0) H 04/02/17 15:35 Neut # 2.5 K/uL (1.8-7.0) 04/02/17 15:35 Lymph # 1.0 K/uL (1.0-4.3) 04/02/17 15:35 [place] # 0.6 K/uL (0.0-0.8) 04/02/17 15:35 Eos # 0.1 K/uL (0.0-0.7) 04/02/17 15:35 Baso # 0.1 K/uL (0.0-0.2) 04/02/17 15:35 Retic Count 0.7 % (0.5-1.5) 04/08/17 09:15 PT 14.8 Seconds (9.8-13.1) H 04/06/17 14:30 INR 1.3 (0.9-1.2) H 04/06/17 14:30 APTT 37.6 Seconds (25.6-37.1) H 04/02/17 15:35 Sodium 134 mmol/l (132-148) 04/06/17 14:30 Potassium 4.0 MMOL/L (3.6-5.0) 04/06/17 14:30 Chloride 99 mmol/L (98-107) 04/06/17 14:30 Carbon Dioxide 25 mmol/L (22-30) 04/06/17 14:30 Anion Gap 14 (10-20) 04/06/17 14:30 BUN 19 mg/dl (9-20) 04/06/17 14:30 Creatinine 2.4 mg/dL (0.8-1.5) H 04/06/17 14:30 Est GFR ( Amer) 32 04/06/17 14:30 Est GFR (Non-Af Amer) 27 04/06/17 14:30 POC Glucose (mg/dL) 130 mg/dL (65-110) H 04/08/17 15:45 Random Glucose 137 mg/dL (75-110) H 04/06/17 14:30 Lactic Acid 1.2 MMOL/L (0.7-2.1) 04/02/17 15:35 Calcium 8.8 mg/dL (8.4-10.2) 04/06/17 14:30 Ferritin 714.0 ng/Ml (17.9-464) H 04/08/17 09:15 Total Bilirubin 1.4 mg/dl (0.2-1.3) H 04/03/17 21:03 AST 39 U/L (17-59) 04/03/17 21:03 ALT 29 U/L (21-72) 04/03/17 21:03 Alkaline Phosphatase 248 U/L (38-126) H D 04/03/17 21:03 Troponin I 0.0860 ng/mL (0.00-0.120) 04/02/17 15:35 NT-Pro-B Natriuret Pep 486093 pg/ml (0-900) H 04/06/17 14:30 Total Protein 5.8 G/DL (6.3-8.2) L 04/03/17 21:03 Total Protein (PEP) 5.9 g/dL (6.1-8.1) L 04/08/17 09:15 Albumin 2.7 g/dL (3.5-5.0) L D 04/03/17 21:03 Globulin 3.1 gm/dL (2.2-3.9) 04/03/17 21:03 Albumin/Globulin Ratio 0.9 (1.0-2.1) L 04/03/17 21:03 Vitamin B12 605 pg/mL (239-931) 04/08/17 09:15 Folate 10.0 ng/mL 04/08/17 09:15 Fluid Source Pleural/thoracentesi 04/07/17 13:10 Fluid Appearance Clear (CLEAR) 04/07/17 13:10 Fluid WBC 56.0 /mm3 (0.0-300.0) 04/07/17 13:10 Fluid RBC 1584.0 /mm3 (0.0-0.0) H 04/07/17 13:10 Fluid Tot Cell Count 100 (0-0) H 04/07/17 13:10 Fluid Neutrophils 1.0 % (0-0) H 04/07/17 13:10 Fluid Lymphocytes 92.0 % (0-0) H 04/07/17 13:10 Fld Monocyte/Macrophag 7 % (0-0) H 04/07/17 13:10 Fluid Glucose 122 mg/dL (NONE ESTABLISHED) 04/07/17 13:17 Fluid Total Protein < 2.0 g/dL (NONE ESTABLISHED) 04/07/17 13:17 Fluid LDH 117 IU (NONE ESTABLISHED) 04/07/17 13:17 Fluid Comment Yellow 04/07/17 13:10 Hepatitis A IgM Ab Negative (NEGATIVE) 04/08/17 09:15 Hep Bs Antigen Negative (NEGATIVE) 04/08/17 09:15 Hep Bs Antibody Positive (NEGATIVE) 04/08/17 09:15 Hep B Core IgM Ab Negative (NEGATIVE) 04/08/17 09:15 Hepatitis C Antibody Negative (NEGATIVE) 04/08/17 09:15 HIV 1&2 Antibody Screen Negative (NEGATIVE) 04/08/17 09:15 Discharge Exam - Head Exam Head Exam: ATRAUMATIC, NORMAL INSPECTION, NORMOCEPHALIC Discharge Plan - Discharge Medications Prescriptions: Amoxicillin/Potassium Clav [Augmentin 500 mg-125 mg] 1 tab PO DAILY #7 tab - Follow Up Plan Condition: STABLE Disposition: REHAB FACILITY/REHAB UNIT Additional Instructions: pt for [facility]. 5 days of oral anbx per ID. serial cxr in [facility]. final dx-chf, esrd, cardiomyopathy, pna, med sper med rec
--- NOTE | 2017-04-09 09:03 | PN ---
DATE: 04/08/2017 SUBJECTIVE: The patient denied any chest pain. His shortness of breath has improved. PHYSICAL EXAMINATION: VITAL SIGNS: Blood pressure 150/69, heart rate 69, temperature 96.8, respirations 20. HEENT: Pale conjunctivae. CHEST: Diminished breath sounds over the left base. HEART: S1 and S2, regular. ABDOMEN: Soft. EXTREMITIES: No pedal edema. LABORATORY DATA: Today's blood sugars are 188, 714, and 177 mg/dL. ASSESSMENT: 1. Cardiomyopathy. 2. Left pleural effusion status post thoracocentesis. 3. Left thoracocentesis with removal of 450 mL of straw color fluid. 4. End-stage renal disease, on hemodialysis. 5. Cerebrovascular accident with residual left hemiplegia. 6. Mild anemia and thrombocytopenia. 7. Uncontrolled diabetes mellitus. RECOMMENDATIONS: Continue hydralazine 75 mg once daily, Zithromax 500 mg intravenously daily, Coreg 6.25 mg twice a day, heparin 5000 units subcutaneous twice a day, Zosyn 2.25 g intravenous q. 8 hours, enalapril 20 mg once a day. Consider initiating the patient on Eliquis 2.5 mg twice a day if there is no contraindication. Dc La MD
== END 2017-04-08 17:17 | DRG 291 ==
LOC: H.ER 14:37 → H.ERHOLD 18:23 → H.TEL 20:55
PROVIDERS: ADMIT Family Medicine; ATTEND Family Medicine
PROC: 3E0234Z Introduction of Serum, Toxoid and Vaccine into Muscle, Percutaneous Approach (ICD-10-PCS; principal; 2017-04-02)
PROC: 0W9B3ZZ Drainage of Left Pleural Cavity, Percutaneous Approach (ICD-10-PCS; 2017-04-07)
PROC: 5A1D70Z Performance of Urinary Filtration, Intermittent, Less than 6 Hours Per Day (ICD-10-PCS; 2017-04-08)
DX: I13.2 Hypertensive heart and chronic kidney disease with heart failure and with stage 5 chronic kidney disease, or end stage renal disease (principal); J18.0 Bronchopneumonia, unspecified organism; D61.818 Other pancytopenia; D68.9 Coagulation defect, unspecified; J91.8 Pleural effusion in other conditions classified elsewhere; R64 Cachexia; N18.6 End stage renal disease; J44.0 Chronic obstructive pulmonary disease with (acute) lower respiratory infection; I50.21 Acute systolic (congestive) heart failure; J98.11 Atelectasis; I69.354 Hemiplegia and hemiparesis following cerebral infarction affecting left non-dominant side; I42.0 Dilated cardiomyopathy; E11.22 Type 2 diabetes mellitus with diabetic chronic kidney disease; E11.65 Type 2 diabetes mellitus with hyperglycemia; I25.10 Atherosclerotic heart disease of native coronary artery without angina pectoris; Z23 Encounter for immunization; Z74.01 Bed confinement status; Z79.4 Long term (current) use of insulin; Z99.2 Dependence on renal dialysis; Z87.891 Personal history of nicotine dependence; E78.5 Hyperlipidemia, unspecified; M62.50 Muscle wasting and atrophy, not elsewhere classified, unspecified site; E11.51 Type 2 diabetes mellitus with diabetic peripheral angiopathy without gangrene; Z89.411 Acquired absence of right great toe; R53.81 Other malaise; D63.1 Anemia in chronic kidney disease; I45.10 Unspecified right bundle-branch block

== ENCOUNTER 2017-04-11 14:27 | Emergency (ER) | payer MEDICARE, BC ==
[2017-04-11 14:27] VITALS: BMI 22.7
[2017-04-11 14:32] VITALS: BP 146/69; PULSE 67; RESP 16; TEMP 98; O2SAT 100
--- NOTE | 2017-04-11 16:03 | ED PDOC ---
HPI: Psych/Substance Abuse Time Seen by Provider: 04/11/17 14:53 Chief Complaint (Nursing): Psychiatric Evaluation Chief Complaint (Provider): Psychiatric Evaluation ED Caveat: Uncooperative History Per: Patient Onset/Duration Of Symptoms: Days (x1) Current Symptoms Are (Timing): Still Present Associated Symptoms: Suicidal Thoughts Additional History Per: EMS Additional Complaint(s): Mrelin Hussein is a 71 y/o male who was sent to the ED for psychiatric evaluation. Per EMS, patient was sent from halfway after expressing suicidal ideations. In ED he is refusing to answer any questions, and is uncooperative with providing history. PMD: Provider TBD Past Medical History Reviewed: Historical Data, Nursing Documentation, Vital Signs, Unable To Obtain Vital Signs: Last Vital Signs Temp 98.0 F 04/11/17 14:29 Pulse 67 04/11/17 14:29 Resp 16 04/11/17 14:29 BP 146/69 04/11/17 14:29 Pulse Ox 100 04/11/17 14:29 - Medical History PMH: Back Problems, CAD, CHF, CVA, Diabetes, HTN, Pneumonia, End Stage Renal Disease, Chronic Kidney Disease (hemodialysis [id number]-f- left av shunt) Denies: HIV - Family History Family History: States: Unknown Family Hx - Immunization History Hx Tetanus Toxoid Vaccination: No Hx Influenza Vaccination: Yes Hx Pneumococcal Vaccination: No - Home Medications Home Medications: Ambulatory Orders Medication Instructions Recorded Carvedilol [Coreg] 6.25 mg PO Q12H 04/02/17 Enalapril Maleate [Vasotec] 20 mg PO Q12H 04/02/17 amLODIPine [Norvasc] 5 mg PO DAILY 04/02/17 hydrALAZINE [Apresoline] 75 mg PO DAILY 04/02/17 Acetaminophen [Tylenol 325mg tab] 650 mg PO Q4 PRN tab 04/08/17 Albuterol/Ipratropium [Duoneb 3 3 ml INH RQ4 PRN neb 04/08/17 mg/0.5 mg (3 ml) UD] Amoxicillin/Potassium Clav 1 tab PO DAILY #7 tab 04/08/17 [Augmentin 500 mg-125 mg] Heparin 5,000 units SC Q12 vial 04/08/17 Insulin Human Regular [HumuLIN R] 0 units SC ACHS ml 10/18/17 - Allergies Allergies/Adverse Reactions: Allergies Allergy/AdvReac Type Severity Reaction Status Date / Time No Known Allergies Allergy Verified 04/11/17 14:29 Review of Systems Review Of Systems: ROS cannot be obtained secondary to pt's inabilty to answer questions. Physical Exam - Reviewed Nursing Documentation Reviewed: Yes Vital Signs Reviewed: Yes - Physical Exam Appears: Positive for: Non-toxic, No Acute Distress Head Exam: Positive for: ATRAUMATIC, NORMAL INSPECTION, NORMOCEPHALIC Skin: Positive for: Normal Color, Warm, Dry Eye Exam: Positive for: EOMI, Normal appearance, PERRL Neck: Positive for: Normal, Painless ROM, Supple Cardiovascular/Chest: Positive for: Regular Rate, Rhythm. Negative for: Murmur Respiratory: Positive for: Normal Breath Sounds. Negative for: Accessory Muscle Use, Respiratory Distress Pulses-Radial (L): 2+ Pulses-Radial (R): 2+ Gastrointestinal/Abdominal: Positive for: Normal Exam, Soft. Negative for: Tenderness Back: Positive for: Normal Inspection. Negative for: L CVA Tenderness, R CVA Tenderness, Vertebral Tenderness Extremity: Positive for: Normal ROM. Negative for: Pedal Edema, Deformity Neurologic/Psych: Positive for: Alert (and awake), Other (uncooperative) - ECG O2 Sat by Pulse Oximetry: 100 (RA) Pulse Ox Interpretation: Normal Medical Decision Making Medical Decision Making: Time: 15:10 Initial Plan: --Pending crisis evaluation Patient evaluated by case management social worker and is stable for discharge home. Denying any suicidal ideations at this time. Time: 16:15 --Discussed case w/ Dr. Cote (covering for Dr. Garcia) agrees with plan to transfer patient back to [place]. Scribe Attestation: Documented by Latesha Whalen, acting as a scribe for Bea Garcia MD Provider Scribe Attestation: All medical record entries made by the Scribe were at my direction and personally dictated by me. I have reviewed the chart and agree that the record accurately reflects my personal performance of the history, physical exam, medical decision making, and the department course for this patient. I have also personally directed, reviewed, and agree with the discharge instructions and disposition. Disposition - Clinical Impression Clinical Impression: Adjustment disorder - Patient ED Disposition Is Patient to be Admitted: No Counseled Patient/Family Regarding: Diagnosis, Need For Followup - Disposition Referrals: Nilesh Garcia DO [Family Provider] - Disposition: Other Institution (D/C to halfway) Disposition Time: 16:15 Condition: STABLE Instructions: Mood Disorders (ED) Forms: [employer] (Khmer) Print Language: [place]
== END 2017-04-11 20:25 | disposition home or self-care (01) ==
LOC: H.ER 14:27
DX: F43.20 Adjustment disorder, unspecified (principal)